=== PATIENT | female | born 1960 | race Caucasian/White ===

== ENCOUNTER 2016-09-18 17:29 | Emergency (ER) | payer OTHER ==
[2016-09-18] MEDS ORDERED: Sodium Chloride 0.9% 10 ML Syringe FLUSH PRN (17:32)
[2016-09-18] MEDS ORDERED: Sodium Chloride 0.9% 1,000 ML IV ONE ×2 (17:32→18:37)
[2016-09-18] MEDS ORDERED: Sodium Chloride 0.9% 2.5 ML Syringe FLUSH PRN (17:32)
[2016-09-18] MEDS ORDERED: Ketorolac 30 MG/ML SDV IVPUSH ONE (17:37)
[2016-09-18] MEDS ORDERED: Ondansetron 4 MG/2 ML SDV IVPUSH ONE (17:37)
--- NOTE | 2016-09-18 17:47 | EDM.PDOC ---
ED HPI GENERAL MEDICAL PROBLEM - General Chief Complaint: Abdominal Pain Stated Complaint: PT HAS STOMACH PAINS Time Seen by Provider: 09/18/16 17:30 - History of Present Illness INITIAL COMMENTS - FREE TEXT/NARRATIVE: HISTORY AND PHYSICAL: History of present illness: Patient 36-year-old female presents with conservative abdominal pain 3 weeks this is across her upper abdomen she's been seen by private doctor for physiatry see the diagnosis she has had prior laparoscopy denies known gallbladder pancreatic or renal disease there's been no fever chills chest pain shortness of breath or other concern she does have a history of diabetes as well as hypertension Review of systems: As per history of present illness and below otherwise all systems reviewed and negative. Past medical history: As per history of present illness and as reviewed below otherwise noncontributory. Surgical history: As per history of present illness and as reviewed below otherwise noncontributory. Social history: No reported history of drug or alcohol abuse. Family history: As per history of present illness and as reviewed below otherwise noncontributory. Physical exam: HEENT: Atraumatic, normocephalic, pupils reactive, negative for conjunctival pallor or scleral icterus, mucous membranes moist, throat clear, neck supple, nontender, trachea midline. Lungs: Clear to auscultation, breath sounds equal bilaterally, chest nontender. Heart: S1S2, regular, negative for clicks, rubs, or JVD. Abdomen: Soft, nondistended, mild tenderness across her upper abdomen this is nonlocalized no rebound no guarding. Negative for masses or hepatosplenomegaly. Negative for costovertebral tenderness. Pelvis: Stable nontender. Genitourinary: Deferred. Rectal: Deferred. Extremities: Atraumatic, negative for cords or calf pain. Neurovascular unremarkable. Neuro: Awake, alert, oriented. Cranial nerves II through XII unremarkable. Cerebellum unremarkable. Motor and sensory unremarkable throughout. Exam nonfocal. Diagnostics: CBC CMP amylase lipase UA chest x-ray EKG CT abdomen and pelvis Therapeutics: Normal saline 1 L bolus Toradol 30 mg IV Zofran 4 mg IV Impression: Over 1 abdominal pain #2 history diabetes #3 history of hypertension Definitive disposition and diagnosis as appropriate pending reevaluation and review of above. Upper Abdomen Pain Score (Numeric/FACES): 9 - Related Data Allergies Allergy/AdvReac Type Severity Reaction Status Date / Time amoxicillin Allergy Hives Verified 09/18/16 17:41 aspirin Allergy Hives Verified 09/18/16 17:41 Fish Containing Products Allergy Nausea and Verified 09/18/16 17:41 Vomiting ibuprofen Allergy Hives Verified 09/18/16 17:41 Home Meds: Home Meds Gabapentin [Neurontin] 900 mg PO BEDTIME 11/24/14 [History] Insulin Glargine,Hum.Rec.Anlog [Lantus Solostar] 40 units SQ BID 11/24/14 [ History] Canagliflozin [Invokana] 300 mg PO DAILY 07/21/15 [History] Lisinopril 20 mg PO DAILY 07/21/15 [History] Desvenlafaxine [Desvenlafaxine ER] 50 mg PO DAILY 09/18/16 [History] Pravastatin [Pravachol] 20 mg PO DAILY 09/18/16 [History] Past Medical History HEENT History: Reports: None Other HEENT History: wears glasses, has some diabetic retinopathy Cardiovascular History: Reports: None Respiratory History: Reports: Sleep Apnea Other Respiratory History: does not use CPAP Gastrointestinal History: Reports: GERD, Hiatal Hernia Genitourinary History: Reports: UTI, Recurrent Other Genitourinary History: yeast infections [employer] History: Reports: None Other OB/BYN History: breast reduction Musculoskeletal History: Reports: Arthritis, Fracture Other Musculoskeletal History: hx of fx right arm and left shoulder Neurological History: Reports: None Psychiatric History: Reports: Anxiety, PTSD Other Psychiatric History: refuses pre-op sedation for PTSD Endocrine/Metabolic History: Reports: Diabetes, Type II, Obesity/BMI 30+ Hematologic History: Reports: None Immunologic History: Reports: None Oncologic (Cancer) History: Reports: None Dermatologic History: Reports: Other (See Below) Other Dermatologic History: frequent scratching causing open sores - Past Surgical History Female Surgical History: Reports: Breast Reduction, Other (See Below) Musculoskeletal Surgical History: Reports: Shoulder Replacement Social & Family History - Tobacco Use Smoking Status *Q: Never Smoker Second Hand Smoke Exposure: No - Recreational Drug Use Recreational Drug Use: No Drug Use in Last 12 Months: No ED ROS GENERAL - Review of Systems Review Of Systems: ROS reveals no pertinent complaints other than HPI. ED EXAM, GENERAL - Physical Exam Exam: See Below (See dictation) Course - Vital Signs Last Recorded V/S: Last Vital Signs Temp 36.2 C 09/18/16 19:35 Pulse 81 09/18/16 19:35 Resp 17 09/18/16 19:35 BP 130/64 09/18/16 19:35 Pulse Ox 96 09/18/16 19:35 - Orders/Labs/Meds Orders: Active Orders 24 hr Category Date Time Status EKG Documentation Completion [RC] STAT Care 09/18/16 17:31 Active Pulse Oximetry [RC] ASDIRECTED Care 09/18/16 17:31 Active Abdomen Pelvis wo Cont [CT] Stat Exams 09/18/16 17:32 Taken Chest 1V Frontal [CR] Stat Exams 09/18/16 17:31 Taken Sodium Chloride 0.9% [Saline Flush] Med 09/18/16 17:32 Active 10 ml FLUSH ASDIRECTED PRN Sodium Chloride 0.9% [Saline Flush] Med 09/18/16 17:32 Active 2.5 ml FLUSH ASDIRECTED PRN Saline Lock Insert [OM.PC] Stat Oth 09/18/16 17:31 Ordered Medication Orders Sodium Chloride (Saline Flush) 10 ml FLUSH ASDIRECTED PRN PRN Reason: Keep Vein Open Sodium Chloride (Saline Flush) 2.5 ml FLUSH ASDIRECTED PRN PRN Reason: Keep Vein Open Labs: Laboratory Tests 09/18/16 09/18/16 09/18/16 Range/Units 17:50 17:56 17:56 WBC 11.91 H (4.0-11.0) K/uL RBC 4.67 (4.30-5.90) M/uL Hgb 14.1 (12.0-16.0) g/dL Hct 42.5 (36.0-46.0) % MCV 91.0 (80.0-98.0) fL MCH 30.2 (27.0-32.0) pg MCHC 33.2 (31.0-37.0) g/dL RDW Std Deviation 42.5 (28.0-62.0) fl RDW Coeff of Conor 13 (11.0-15.0) % Plt Count 261 (150-400) K/uL MPV 9.50 (7.40-12.00) fL Neut % (Auto) 71.1 (48.0-80.0) % Lymph % (Auto) 19.9 (16.0-40.0) % [place] % (Auto) 6.3 (0.0-15.0) % Eos % (Auto) 2.4 (0.0-7.0) % Baso % (Auto) 0.3 (0.0-1.5) % Neut # (Auto) 8.5 H (1.4-5.7) K/uL Lymph # (Auto) 2.4 (0.6-2.4) K/uL [place] # (Auto) 0.8 (0.0-0.8) K/uL Eos # (Auto) 0.3 (0.0-0.7) K/uL Baso # (Auto) 0.0 (0.0-0.1) K/uL Nucleated RBC % 0.0 /100WBC Nucleated RBCs # 0 K/uL ABG pH (7.35-7.45) ABG pCO2 (35-45) mmHG ABG pO2 (75-100) mmHG ABG HCO3 (22-26) mEq/L ABG Total CO2 ABG Base Excess (-2.0-2.0) Sodium 133 L (136-146) mmol/L Potassium 4.7 (3.5-5.1) mmol/L Chloride 103 (98-110) mmol/L Carbon Dioxide 18 L (21-31) mmol/L BUN 22 (6.0-23.0) mg/dL Creatinine 1.0 (0.6-1.5) mg/dL Est Cr Clr Drug Dosing 50.27 mL/min Estimated GFR (MDRD) 57.6 ml/min Glucose 515 H* (60-110) mg/dL POC Glucose (60-110) mg/dL Calcium 9.3 (8.8-10.8) mg/dL Total Bilirubin 0.3 (0.1-1.5) mg/dL AST 48 H (5-40) IU/L ALT 24 (8-54) IU/L Alkaline Phosphatase 52 (40-150) Total Protein 7.5 (6.0-8.0) g/dL Albumin 3.7 (3.5-5.0) g/dL Globulin 3.8 H (2.0-3.5) g/dL Albumin/Globulin Ratio 1.0 L (1.3-2.8) Amylase 33 (10-90) U/L Lipase 36 (7-80) U/L Urine Color YELLOW Urine Appearance CLEAR Urine pH 5.0 (5.0-8.0) Ur Specific [place] <= 1.005 (1.001-1.035) Urine Protein NEGATIVE (NEGATIVE) mg/dL Urine Glucose (UA) >=1000 (NEGATIVE) mg/dL Urine Ketones NEGATIVE (NEGATIVE) mg/dL Urine Occult Blood NEGATIVE (NEGATIVE) Urine Nitrite NEGATIVE (NEGATIVE) Urine Bilirubin NEGATIVE (NEGATIVE) Urine Urobilinogen 0.2 (<2.0) EU/dL Ur Leukocyte Esterase NEGATIVE (NEGATIVE) Urine RBC 0-2 (0-2/HPF) Urine WBC 0-1 (0-5/HPF) Ur Epithelial Cells OCCASIONAL (NONE-FEW) Urine Bacteria RARE (NEGATIVE) 09/18/16 09/18/16 09/18/16 Range/Units 19:11 19:20 20:04 WBC (4.0-11.0) K/uL RBC (4.30-5.90) M/uL Hgb (12.0-16.0) g/dL Hct (36.0-46.0) % MCV (80.0-98.0) fL MCH (27.0-32.0) pg MCHC (31.0-37.0) g/dL RDW Std Deviation (28.0-62.0) fl RDW Coeff of Conor (11.0-15.0) % Plt Count (150-400) K/uL MPV (7.40-12.00) fL Neut % (Auto) (48.0-80.0) % Lymph % (Auto) (16.0-40.0) % [place] % (Auto) (0.0-15.0) % Eos % (Auto) (0.0-7.0) % Baso % (Auto) (0.0-1.5) % Neut # (Auto) (1.4-5.7) K/uL Lymph # (Auto) (0.6-2.4) K/uL [place] # (Auto) (0.0-0.8) K/uL Eos # (Auto) (0.0-0.7) K/uL Baso # (Auto) (0.0-0.1) K/uL Nucleated RBC % /100WBC Nucleated RBCs # K/uL ABG pH 7.371 (7.35-7.45) ABG pCO2 38 (35-45) mmHG ABG pO2 76 (75-100) mmHG ABG HCO3 22 (22-26) mEq/L ABG Total CO2 20.1 ABG Base Excess -2.8 L (-2.0-2.0) Sodium (136-146) mmol/L Potassium (3.5-5.1) mmol/L Chloride (98-110) mmol/L Carbon Dioxide (21-31) mmol/L BUN (6.0-23.0) mg/dL Creatinine (0.6-1.5) mg/dL Est Cr Clr Drug Dosing mL/min Estimated GFR (MDRD) ml/min Glucose (60-110) mg/dL POC Glucose 442 H 361 H (60-110) mg/dL Calcium (8.8-10.8) mg/dL Total Bilirubin (0.1-1.5) mg/dL AST (5-40) IU/L ALT (8-54) IU/L Alkaline Phosphatase (40-150) Total Protein (6.0-8.0) g/dL Albumin (3.5-5.0) g/dL Globulin (2.0-3.5) g/dL Albumin/Globulin Ratio (1.3-2.8) Amylase (10-90) U/L Lipase (7-80) U/L Urine Color Urine Appearance Urine pH (5.0-8.0) Ur Specific [place] (1.001-1.035) Urine Protein (NEGATIVE) mg/dL Urine Glucose (UA) (NEGATIVE) mg/dL Urine Ketones (NEGATIVE) mg/dL Urine Occult Blood (NEGATIVE) Urine Nitrite (NEGATIVE) Urine Bilirubin (NEGATIVE) Urine Urobilinogen (<2.0) EU/dL Ur Leukocyte Esterase (NEGATIVE) Urine RBC (0-2/HPF) Urine WBC (0-5/HPF) Ur Epithelial Cells (NONE-FEW) Urine Bacteria (NEGATIVE) Meds: Medications Generic Name Dose Route Start Last Admin Trade Name Freq PRN Reason Stop Dose Admin Sodium Chloride 10 ml 09/18/16 17:32 Saline Flush FLUSH ASDIRECTED PRN Keep Vein Open Sodium Chloride 2.5 ml 09/18/16 17:32 Saline Flush FLUSH ASDIRECTED PRN Keep Vein Open Discontinued Medications Generic Name Dose Route Start Last Admin Trade Name Carolin PRN Reason Stop Dose Admin Sodium Chloride 1,000 mls @ 999 mls/hr 09/18/16 17:32 09/18/16 18:17 Normal Saline IV 09/18/16 18:32 Not Given STAT ONE Sodium Chloride 1,000 mls @ 999 mls/hr 09/18/16 18:37 09/18/16 18:39 Normal Saline IV 09/18/16 19:37 999 mls/hr .Bolus ONE Administration Insulin Human Regular 10 unit 09/18/16 19:32 09/18/16 19:41 Novolin R SUBCUT 09/18/16 19:33 10 units ONETIME ONE Administration Protocol Insulin Human Regular 10 unit 09/18/16 19:34 09/18/16 19:38 Novolin R IVPUSH 09/18/16 19:35 10 units ONETIME ONE Administration Protocol Ketorolac Tromethamine 30 mg 09/18/16 17:37 09/18/16 18:17 Toradol IVPUSH 09/18/16 17:38 Not Given ONETIME ONE Ketorolac Tromethamine 60 mg 09/18/16 18:07 09/18/16 18:18 Toradol IM 09/18/16 18:08 60 mg ONETIME ONE Administration Ondansetron HCl 4 mg 09/18/16 17:37 09/18/16 18:18 Zofran IVPUSH 09/18/16 17:38 Not Given ONETIME ONE Ondansetron HCl 4 mg 09/18/16 18:06 09/18/16 18:18 Zofran Odt PO 09/18/16 18:07 4 mg ONETIME ONE Administration Departure - Departure Time of Disposition: 20:19 Disposition: Home, Self-Care 01 Condition: Good Clinical Impression: Abdominal pain, Cholelithiasis, Hyperglycemia, Diabetes - Discharge Information Forms: ED Department Discharge Additional Instructions: The following information is given to patients seen in the emergency department who are being discharged to home. This information is to outline your options for follow-up care. We provide all patients seen in our emergency department with a follow-up referral. The need for follow-up, as well as the timing and circumstances, are variable depending upon the specifics of your emergency department visit. If you don't have a primary care physician on staff, we will provide you with a referral. We always advise you to contact your personal physician following an emergency department visit to inform them of the circumstance of the visit and for follow-up with them and/or the need for any referrals to a consulting specialist. The emergency department will also refer you to a specialist when appropriate. This referral assures that you have the opportunity for followup care with a specialist. All of these measure are taken in an effort to provide you with optimal care, which includes your followup. Under all circumstances we always encourage you to contact your private physician who remains a resource for coordinating your care. When calling for followup care, please make the office aware that this follow-up is from your recent emergency room visit. If for any reason you are refused follow-up, please contact the [facility] emergency department at and asked to speak to the emergency department charge nurse. [facility] Professional Building [address] [place] [address], [facility] [address] [place] [address] Diet as directed continue current medications follow-up primary medical doctor/ general surgery call to schedule routine appointments return as needed as discussed - My Orders Last 24 Hours: My Active Orders 09/18/16 17:31 EKG Documentation Completion [RC] STAT Pulse Oximetry [RC] ASDIRECTED Chest 1V Frontal [CR] Stat Saline Lock Insert [OM.PC] Stat 09/18/16 17:32 Abdomen Pelvis wo Cont [CT] Stat Sodium Chloride 0.9% [Saline Flush] 10 ml FLUSH ASDIRECTED PRN Sodium Chloride 0.9% [Saline Flush] 2.5 ml FLUSH ASDIRECTED PRN - Assessment/Plan Last 24 Hours: My Active Orders 09/18/16 17:31 EKG Documentation Completion [RC] STAT Pulse Oximetry [RC] ASDIRECTED Chest 1V Frontal [CR] Stat Saline Lock Insert [OM.PC] Stat 09/18/16 17:32 Abdomen Pelvis wo Cont [CT] Stat Sodium Chloride 0.9% [Saline Flush] 10 ml FLUSH ASDIRECTED PRN Sodium Chloride 0.9% [Saline Flush] 2.5 ml FLUSH ASDIRECTED PRN
[2016-09-18] MEDS ORDERED: Ondansetron 4 MG Tab.DIS PO ONE (18:06)
[2016-09-18] MEDS ORDERED: Ketorolac 60 MG/2 ML SDV IM ONE (18:07)
[2016-09-18] MEDS ORDERED: Insulin Regular, Human 100 Units/ML 10 ML Vial SUBCUT ONE (19:32)
[2016-09-18] MEDS ORDERED: Insulin Regular, Human 100 Units/ML 10 ML Vial IVPUSH ONE (19:34)
[2016-09-18 20:01] VITALS: BP 130/64
--- NOTE | 2016-09-20 15:01 | CR ---
EXAM DATE: 09/18/16 PATIENT'S AGE: 56 Patient: ILAN HERNANDEZ Facility: [place], [place] Site . Site : 1960 Study: XRay Chest [id number]/1/2017 6:15:35 PM Ordering Physician: Doctor Anderson Final Report: INDICATION: upper abd pain x 2 wks TECHNIQUE: Chest 1 view COMPARISON: 11/08/2012 FINDINGS: Cardiovascular and mediastinum: Heart size and vasculature are normal in caliber and appearance. Mediastinum is within normal limits. Lungs and pleural space: No focal consolidation. No sign of pleural effusion. No pneumothorax. Bones: Left shoulder arthroplasty. IMPRESSION: No acute cardiopulmonary disease. Dictated by Vasiliy Castelan MD @ 09/18/2016 6:52:00 PM Dictated by: Vasiliy Castelan MD @ 09/18/2016 18:52:39 (Electronic Signature) Report Signed by Proxy. JONATHAN
--- NOTE | 2016-09-20 15:02 | CT ---
EXAM DATE: 09/18/16 PATIENT'S AGE: 56 Patient: ILAN HERNANDEZ Facility: [place], [place] Site . Site : 1960 Study: CT Abdomen/Pelvis [id number]/1/2017 6:17:01 PM Ordering Physician: Doctor Anderson Final Report: INDICATION: upper abd pain x 2wks. nausea, constipation TECHNIQUE: CT abdomen and pelvis without contrast. COMPARISON: None FINDINGS: Lower chest: Calcified granuloma along the lateral left lower lobe. Calcified left infrahilar lymph nodes. Liver: Unremarkable. Spleen: Unremarkable. Pancreas: Unremarkable. Gallbladder and bile ducts: Cholelithiasis. Kidneys: Unremarkable. No kidney or ureteral stones and no hydronephrosis. Adrenal glands: Unremarkable. GI tract: Small hiatal hernia. Appendix is normal. Vascular structures: Atherosclerotic disease. Lymph nodes: Unremarkable. Miscellaneous: Fat containing umbilical hernia. No free air or significant free fluid. Pelvic Organs: Probable nabothian cysts. Bones: Degenerative changes. IMPRESSION: 1. Cholelithiasis. 2. Fat containing umbilical hernia. 3. Small hiatal hernia. Dictated by Vasiliy Castelan MD @ 09/18/2016 6:57:05 PM Dictated by: Vasiliy Castelan MD @ 09/18/2016 18:57:13 (Electronic Signature) Report Signed by Proxy. [facility]
== END 2016-09-18 20:45 | disposition home or self-care (01) ==
LOC: MW.ED 17:29
DX: K80.20 Calculus of gallbladder without cholecystitis without obstruction (principal); E11.65 Type 2 diabetes mellitus with hyperglycemia; I10 Essential (primary) hypertension; K21.9 Gastro-esophageal reflux disease without esophagitis; E66.9 Obesity, unspecified; Z88.1 Allergy status to other antibiotic agents; Z88.6 Allergy status to analgesic agent; Z91.013 Allergy to seafood; Z79.4 Long term (current) use of insulin; Z79.899 Other long term (current) drug therapy; Z87.440 Personal history of urinary (tract) infections
CPT/HCPCS: 36415; 36600; 71010; 74176; 80053; 81001; 82150; 82803; 82962; 83690; 85025; 96360; 96372; 99285; A4566; A9270; J1885; J7040; 93005; 99283; J1815-GY

== ENCOUNTER 2016-09-29 19:52 | Observation (INO) | payer OTHER ==
[2016-09-29] MEDS ORDERED: Sodium Chloride 0.9% 1,000 ML IV ONE (20:06)
--- NOTE | 2016-09-29 20:44 | EDM.PDOC ---
ED HPI GENERAL MEDICAL PROBLEM - General Chief Complaint: General Stated Complaint: GALLBLADDER ISSUES Time Seen by Provider: 09/29/16 20:00 Source of Information: Reports: Patient History Limitations: Reports: No Limitations - History of Present Illness INITIAL COMMENTS - FREE TEXT/NARRATIVE: History of present illness: [56-year-old home female comes in complaining of water retention and global feelings of feeling tight and full. Patient indicates she has a new diagnosis of gallbladder disease and her blood sugar had been out of control but she had been greatly improved over the last week or 2 in hopes of eventually having her gallbladder removed.] Review of systems: As per history of present illness and below otherwise all systems reviewed and negative. Past medical history: As per history of present illness and as reviewed below otherwise noncontributory. Surgical history: As per history of present illness and as reviewed below otherwise noncontributory. Social history: No reported history of drug or alcohol abuse. Family history: As per history of present illness and as reviewed below otherwise noncontributory. Physical exam: HEENT: Atraumatic, normocephalic, pupils reactive, negative for conjunctival pallor or scleral icterus, mucous membranes moist, throat clear, neck supple, nontender, trachea midline. Lungs: Clear to auscultation, breath sounds equal bilaterally, chest nontender. Heart: S1S2, regular, negative for clicks, rubs, or JVD. Abdomen: Soft, protuberant nontender Negative for masses or hepatosplenomegaly. Negative for costovertebral tenderness. Pelvis: Stable nontender. Genitourinary: Deferred. Rectal: Deferred. Extremities: Atraumatic, negative for cords or calf pain. Neurovascular unremarkable. 2-3+ pitting edema to bilateral lower extremities Neuro: Awake, alert, oriented. Cranial nerves II through XII unremarkable. Cerebellum unremarkable. Motor and sensory unremarkable throughout. Exam nonfocal. Patient positive for exertional dyspnea and global shortness of breath Diagnostics: [CBC, CMP, BNP] Therapeutics: [IV fluid, T] Impression: [CHF] Plan: [Admit, telemetry] Definitive disposition and diagnosis as appropriate pending reevaluation and review of above. - Related Data Allergies Allergy/AdvReac Type Severity Reaction Status Date / Time amoxicillin Allergy Hives Verified 09/29/16 19:55 aspirin Allergy Hives Verified 09/29/16 19:55 Fish Containing Products Allergy Nausea and Verified 07/12/17 19:55 Vomiting ibuprofen Allergy Hives Verified 09/29/16 19:55 Home Meds: Home Meds Gabapentin [Neurontin] 900 mg PO BEDTIME 11/24/14 [History] Insulin Glargine,Hum.Rec.Anlog [Lantus Solostar] 40 units SQ BID 11/24/14 [ History] Canagliflozin [Invokana] 300 mg PO DAILY 07/21/15 [History] Lisinopril 20 mg PO DAILY 07/21/15 [History] Desvenlafaxine [Desvenlafaxine ER] 50 mg PO DAILY 09/18/16 [History] Pravastatin [Pravachol] 20 mg PO DAILY 09/18/16 [History] Past Medical History HEENT History: Reports: None Other HEENT History: wears glasses, has some diabetic retinopathy Cardiovascular History: Reports: None Respiratory History: Reports: Sleep Apnea Other Respiratory History: does not use CPAP Gastrointestinal History: Reports: GERD, Hiatal Hernia Genitourinary History: Reports: UTI, Recurrent Other Genitourinary History: yeast infections 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 Other OB/BYN History: breast reduction Musculoskeletal History: Reports: Arthritis, Fracture Other Musculoskeletal History: hx of fx right arm and left shoulder Neurological History: Reports: None Psychiatric History: Reports: Anxiety, PTSD Other Psychiatric History: refuses pre-op sedation for PTSD Endocrine/Metabolic History: Reports: Diabetes, Type II, Obesity/BMI 30+ Hematologic History: Reports: None Immunologic History: Reports: None Oncologic (Cancer) History: Reports: None Dermatologic History: Reports: Other (See Below) Other Dermatologic History: frequent scratching causing open sores - Infectious Disease History Infectious Disease History: Reports: Chicken Pox - Past Surgical History Head Surgeries/Procedures: Reports: None Female Surgical History: Reports: Breast Reduction, Other (See Below) Musculoskeletal Surgical History: Reports: Shoulder Replacement Social & Family History - Family History Family Medical History: Noncontributory - Tobacco Use Smoking Status *Q: Never Smoker Second Hand Smoke Exposure: No - Caffeine Use Caffeine Use: Reports: Energy Drinks Caffeine Use Comment: "1 every couple of day" - Recreational Drug Use Recreational Drug Use: No Drug Use in Last 12 Months: No ED ROS GENERAL - Review of Systems Review Of Systems: See Below (History of present illness) ED EXAM, GENERAL - Physical Exam Exam: See Below (See history of present illness) Course - Vital Signs Last Recorded V/S: Last Vital Signs Temp 36.4 C 09/29/16 19:55 Pulse 86 09/29/16 21:20 Resp 18 09/29/16 21:20 BP 117/68 09/29/16 21:20 Pulse Ox 96 09/29/16 21:20 - Orders/Labs/Meds Orders: Active Orders 24 hr Category Date Time Status Chest 2V [CR] Stat Exams 09/29/16 21:25 Ordered Sodium Chloride 0.9% [Normal Saline] 1,000 ml Med 09/29/16 20:06 Active IV STAT Medication Orders Sodium Chloride (Normal Saline) 1,000 mls @ 75 mls/hr IV STAT ONE Stop: 09/30/16 09:25 Last Admin: 09/29/16 20:19 Dose: 75 mls/hr Labs: Laboratory Tests 09/29/16 09/29/16 09/29/16 Range/Units 20:14 20:14 20:14 WBC 11.16 H (4.0-11.0) K/uL RBC 3.80 L (4.30-5.90) M/uL Hgb 11.3 L (12.0-16.0) g/dL Hct 35.4 L (36.0-46.0) % MCV 93.2 (80.0-98.0) fL MCH 29.7 (27.0-32.0) pg MCHC 31.9 (31.0-37.0) g/dL RDW Std Deviation 45.1 (28.0-62.0) fl RDW Coeff of Conor 13 (11.0-15.0) % Plt Count 288 (150-400) K/uL MPV 9.00 (7.40-12.00) fL Neut % (Auto) 57.6 (48.0-80.0) % Lymph % (Auto) 32.0 (16.0-40.0) % [place] % (Auto) 7.5 (0.0-15.0) % Eos % (Auto) 2.7 (0.0-7.0) % Baso % (Auto) 0.2 (0.0-1.5) % Neut # (Auto) 6.4 H (1.4-5.7) K/uL Lymph # (Auto) 3.6 H (0.6-2.4) K/uL [place] # (Auto) 0.8 (0.0-0.8) K/uL Eos # (Auto) 0.3 (0.0-0.7) K/uL Baso # (Auto) 0.0 (0.0-0.1) K/uL Nucleated RBC % 0.0 /100WBC Nucleated RBCs # 0 K/uL Sodium 136 (136-146) mmol/L Potassium 4.5 (3.5-5.1) mmol/L Chloride 104 (98-110) mmol/L Carbon Dioxide 24 (21-31) mmol/L BUN 30 H (6.0-23.0) mg/dL Creatinine 1.0 (0.6-1.5) mg/dL Est Cr Clr Drug Dosing 50.27 mL/min Estimated GFR (MDRD) 57.6 ml/min Glucose 170 H (60-110) mg/dL Calcium 8.8 (8.8-10.8) mg/dL Total Bilirubin 0.3 (0.1-1.5) mg/dL AST 67 H (5-40) IU/L ALT 79 H (8-54) IU/L Alkaline Phosphatase 154 H (40-150) B-Natriuretic Peptide 548 H (<100) PG/ML Total Protein 7.3 (6.0-8.0) g/dL Albumin 3.5 (3.5-5.0) g/dL Globulin 3.8 H (2.0-3.5) g/dL Albumin/Globulin Ratio 0.9 L (1.3-2.8) Urine Color Urine Appearance Urine pH (5.0-8.0) Ur Specific [place] (1.001-1.035) Urine Protein (NEGATIVE) mg/dL Urine Glucose (UA) (NEGATIVE) mg/dL Urine Ketones (NEGATIVE) mg/dL Urine Occult Blood (NEGATIVE) Urine Nitrite (NEGATIVE) Urine Bilirubin (NEGATIVE) Urine Urobilinogen (<2.0) EU/dL Ur Leukocyte Esterase (NEGATIVE) Urine RBC (0-2/HPF) Urine WBC (0-5/HPF) Ur Epithelial Cells (NONE-FEW) Urine Bacteria (NEGATIVE) 09/29/16 Range/Units 20:45 WBC (4.0-11.0) K/uL RBC (4.30-5.90) M/uL Hgb (12.0-16.0) g/dL Hct (36.0-46.0) % MCV (80.0-98.0) fL MCH (27.0-32.0) pg MCHC (31.0-37.0) g/dL RDW Std Deviation (28.0-62.0) fl RDW Coeff of Conor (11.0-15.0) % Plt Count (150-400) K/uL MPV (7.40-12.00) fL Neut % (Auto) (48.0-80.0) % Lymph % (Auto) (16.0-40.0) % [place] % (Auto) (0.0-15.0) % Eos % (Auto) (0.0-7.0) % Baso % (Auto) (0.0-1.5) % Neut # (Auto) (1.4-5.7) K/uL Lymph # (Auto) (0.6-2.4) K/uL [place] # (Auto) (0.0-0.8) K/uL Eos # (Auto) (0.0-0.7) K/uL Baso # (Auto) (0.0-0.1) K/uL Nucleated RBC % /100WBC Nucleated RBCs # K/uL Sodium (136-146) mmol/L Potassium (3.5-5.1) mmol/L Chloride (98-110) mmol/L Carbon Dioxide (21-31) mmol/L BUN (6.0-23.0) mg/dL Creatinine (0.6-1.5) mg/dL Est Cr Clr Drug Dosing mL/min Estimated GFR (MDRD) ml/min Glucose (60-110) mg/dL Calcium (8.8-10.8) mg/dL Total Bilirubin (0.1-1.5) mg/dL AST (5-40) IU/L ALT (8-54) IU/L Alkaline Phosphatase (40-150) B-Natriuretic Peptide (<100) PG/ML Total Protein (6.0-8.0) g/dL Albumin (3.5-5.0) g/dL Globulin (2.0-3.5) g/dL Albumin/Globulin Ratio (1.3-2.8) Urine Color YELLOW Urine Appearance CLEAR Urine pH 5.5 (5.0-8.0) Ur Specific [place] 1.025 (1.001-1.035) Urine Protein NEGATIVE (NEGATIVE) mg/dL Urine Glucose (UA) >=1000 (NEGATIVE) mg/dL Urine Ketones NEGATIVE (NEGATIVE) mg/dL Urine Occult Blood NEGATIVE (NEGATIVE) Urine Nitrite NEGATIVE (NEGATIVE) Urine Bilirubin NEGATIVE (NEGATIVE) Urine Urobilinogen 0.2 (<2.0) EU/dL Ur Leukocyte Esterase NEGATIVE (NEGATIVE) Urine RBC NONE SEEN (0-2/HPF) Urine WBC 0-1 (0-5/HPF) Ur Epithelial Cells FEW (NONE-FEW) Urine Bacteria FEW (NEGATIVE) Meds: Medications Generic Name Dose Route Start Last Admin Trade Name Freq PRN Reason Stop Dose Admin Sodium Chloride 1,000 mls @ 75 mls/hr 09/29/16 20:06 09/29/16 20:19 Normal Saline IV 09/30/16 09:25 75 mls/hr STAT ONE Administration Departure - Departure Time of Disposition: 21:41 Disposition: Admitted As Inpatient 67 Condition: Good Clinical Impression: CHF, Congestive heart failure - Discharge Information Forms: ED Department Discharge - My Orders Last 24 Hours: My Active Orders 09/29/16 20:06 Sodium Chloride 0.9% [Normal Saline] 1,000 ml IV STAT 09/29/16 21:25 Chest 2V [CR] Stat - Assessment/Plan Last 24 Hours: My Active Orders 09/29/16 20:06 Sodium Chloride 0.9% [Normal Saline] 1,000 ml IV STAT 09/29/16 21:25 Chest 2V [CR] Stat
[2016-09-29] MEDS ORDERED: Temazepam 15 MG Cap PO PRN (22:43)
[2016-09-29] MEDS ORDERED: Morphine 10 MG/ML Syringe IVPUSH PRN (22:43)
--- NOTE | 2016-09-29 22:48 | PCM.HP ---
H&P History of Present Illness - General Date of Service: 09/29/16 Admit Problem/Dx: Admission Diagnosis/Problem Admission Diagnosis/Problem Edema Source of Information: Patient, Family, Old Records, Provider - History of Present Illness Initial Comments - Free Text/Narative: she presented to the ED this pm with complaints of feeling full in her abdomen. She had a brief period of shortness of breath this am that resolved spontaneously. She had no orthopnea or dyspnea now. She also has been on her feet more than usual and notes that she has a little more fluid retention in her feet and legs. This has happened at other times in the past as well. No chest pain no known history of cardiac disease She was seen about ten days ago for abdominal complaints. At that time CT showed cholelithiasis. She has been very careful about her diet since then. no pain Pain Score (Numeric/FACES): 0 - Related Data Allergies/Adverse Reactions: Allergies Allergy/AdvReac Type Severity Reaction Status Date / Time amoxicillin Allergy Hives Verified 09/29/16 19:55 aspirin Allergy Hives Verified 09/29/16 19:55 Fish Containing Products Allergy Nausea and Verified 09/29/16 19:55 Vomiting ibuprofen Allergy Hives Verified 09/29/16 19:55 Home Medications: Home Meds Gabapentin [Neurontin] 900 mg PO BEDTIME 11/24/14 [History] Insulin Glargine,Hum.Rec.Anlog [Lantus Solostar] 40 units SQ BID 11/24/14 [ History] Canagliflozin [Invokana] 300 mg PO DAILY 07/21/15 [History] Lisinopril 20 mg PO DAILY 07/21/15 [History] Desvenlafaxine [Desvenlafaxine ER] 50 mg PO DAILY 09/18/16 [History] Pravastatin [Pravachol] 20 mg PO DAILY 09/18/16 [History] Past Medical History HEENT History: Reports: None Other HEENT History: wears glasses, has some diabetic retinopathy Cardiovascular History: Reports: Hypertension. Denies: Afib, Angina, Bypass, CAD, Cardiomyopathy, Heart Failure Respiratory History: Reports: Sleep Apnea. Denies: COPD Other Respiratory History: does not use CPAP Gastrointestinal History: Reports: GERD, Hiatal Hernia. 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 Other OB/BYN History: breast reduction Musculoskeletal History: Reports: Arthritis, Fracture Other Musculoskeletal History: hx of fx right arm and left shoulder Neurological History: Reports: None Psychiatric History: Reports: Anxiety, PTSD Other Psychiatric History: refuses pre-op sedation for PTSD Endocrine/Metabolic History: Reports: Diabetes, Type II, Obesity/BMI 30+ Hematologic History: Reports: None Immunologic History: Reports: None Oncologic (Cancer) History: Reports: None Dermatologic History: Reports: Other (See Below) Other Dermatologic History: frequent scratching causing open sores - Infectious Disease History Infectious Disease History: Reports: Chicken Pox - Past Surgical History Head Surgeries/Procedures: Reports: None Female Surgical History: Reports: Breast Reduction, Other (See Below) Musculoskeletal Surgical History: Reports: Shoulder Replacement Social & Family History - Family History Family Medical History: Noncontributory - Tobacco Use Smoking Status *Q: Never Smoker Second Hand Smoke Exposure: No - Caffeine Use Caffeine Use: Reports: Energy Drinks Caffeine Use Comment: "1 every couple of day" - Alcohol Use Alcohol Use in Last Twelve Months: No Alcohol Use Comment: she does not drink alcohol - Recreational Drug Use Recreational Drug Use: No Drug Use in Last 12 Months: No H&P Review of Systems - Review of Systems: Review Of Systems: See Below General: Denies: Fever, Chills HEENT: Denies: Dysphasia Pulmonary: Reports: Shortness of Breath (as per HPI). Denies: Wheezing, Cough, Sputum, Hemoptysis Cardiovascular: Denies: Chest Pain, Palpitations Gastrointestinal: Denies: Abdominal Pain, Anorexia, Black Stool, Bloody Stool, Decreased Appetite, Hematemesis, Hematochezia, Vomiting Genitourinary: Denies: Dysuria, Frequency, Burning, Hematuria Skin: Denies: Cyanosis Psychiatric: Denies: Confusion, Agitation Exam - Exam Exam: See Below - Vital Signs Vital Signs: Last Vital Signs Temp 97.1 F 09/29/16 22:15 Pulse 68 09/29/16 22:15 Resp 18 09/29/16 22:15 BP 118/69 09/29/16 22:15 Pulse Ox 96 09/29/16 22:15 Weight: 120 kg - Exam General: Alert, Oriented, Cooperative HEENT: EOMI, Mucosa Moist & [place] Neck: Supple, Trachea Midline Lungs: Clear to Auscultation, Normal Respiratory Effort Cardiovascular: Regular Rate, Regular Rhythm Abdomen: Soft, Ledesma's Sign, Other (mild diffuse upper abdominal tenderness). No: Distention, Guarding, Rigidity (Female) Exam: Deferred Rectal (Female) Exam: Deferred Extremities: Other (trace to one plus pedal edema bilaterally) Neurological: Cranial Nerves Intact, Normal Speech Neuro Extensive - Motor, Sensory, Reflexes: No: Facial palsy (L), Facial Palsy ( R), Hemeplagia (R), Hemeplagia (L) Psychiatric: Normal Affect - Patient Data Result Diagrams: 09/29/16 20:14 09/29/16 20:14 *Q Meaningful Use (ADM) - VTE *Q VTE Criteria *Q: - Stroke *Q Stroke Criteria *Q: - AMI *Q AMI Criteria *Q: - Problem List (1) Peripheral edema SNOMED Code(s): 038345250 ICD Code: R60.9 - EDEMA, UNSPECIFIED Status: Acute Current Visit: Yes (2) Elevated liver enzymes SNOMED Code(s): 243529478, 556768298 ICD Code: R74.8 - ABNORMAL LEVELS OF OTHER SERUM ENZYMES Status: Acute Current Visit: Yes (3) Cholelithiasis SNOMED Code(s): 777201605 ICD Code: K80.20 - CALCULUS OF GALLBLADDER W/O CHOLECYSTITIS W/O OBSTRUCTION Status: Acute Current Visit: No (4) Diabetes SNOMED Code(s): 37356669 ICD Code: E11.9 - TYPE 2 DIABETES MELLITUS WITHOUT COMPLICATIONS Status: Acute Current Visit: No Problem List Initiated/Reviewed/Updated: Yes Orders Last 24hrs: Active Orders 24 hr Category Date Time Status Patient Status [ADT] Routine ADT 09/29/16 22:44 Ordered Oxygen Therapy [RC] PRN Care 09/29/16 22:44 Ordered POC Glucose [Blood Glucose Check, Bedside] [RC] Care 09/29/16 22:42 Ordered QIDACANDBED Up ad Jadyn [RC] ASDIRECTED Care 09/29/16 22:43 Ordered VTE/DVT Education [RC] PER UNIT ROUTINE Care 09/29/16 22:44 Ordered Vital Signs [RC] Q4H Care 09/29/16 22:44 Ordered [place] [employer] Diet [DIET] Diet 09/29/16 Breakfast Ordered CBC WITH AUTO DIFF [HEME] AM Lab 09/30/16 05:11 Ordered COMPREHENSIVE METABOLIC PN,CMP [CHEM] AM Lab 09/30/16 05:11 Ordered MAGNESIUM [CHEM] AM Lab 09/30/16 05:11 Ordered Canagliflozin [Invokana] Med 09/30/16 09:00 Ordered 300 mg PO DAILY Desvenlafaxine [Desvenlafaxine ER] Med 09/30/16 09:00 Ordered 50 mg PO DAILY Gabapentin [Neurontin] Med 09/30/16 21:00 Ordered 900 mg PO BEDTIME Insulin Aspart [NovoLOG] Med 09/29/16 22:45 Ordered See Protocol SUBCUT ACBED Insulin Glarg,Human.Rec.Analog [LantUS Solostar] Med 09/30/16 09:00 Ordered 40 units SUBCUT BID Lisinopril [Prinivil] Med 09/30/16 09:00 Ordered 20 mg PO DAILY Morphine Med 09/29/16 22:43 Ordered 4 mg IVPUSH Q2H PRN Pravastatin Med 09/30/16 09:00 Ordered 20 mg PO DAILY Temazepam [Restoril] Med 09/29/16 22:43 Ordered 15 mg PO BEDTIME PRN Resuscitation Status Routine Resus Stat 09/29/16 22:43 Ordered Medication Orders Gabapentin (Neurontin) 900 mg PO BEDTIME BROWN Sodium Chloride (Normal Saline) 1,000 mls @ 75 mls/hr IV STAT ONE Stop: 09/30/16 09:25 Last Admin: 09/29/16 20:19 Dose: 75 mls/hr Insulin Aspart (Novolog) 0 unit SUBCUT ACBED BROWN PRN Reason: Protocol Insulin Glargine (Lantus Solostar) 40 units SUBCUT BID BROWN Lisinopril (Prinivil) 20 mg PO DAILY BROWN Non-Formulary Medication (Canagliflozin [Invokana]) 300 mg PO DAILY BROWN Non-Formulary Medication (Desvenlafaxine [Desvenlafaxine Er]) 50 mg PO DAILY BROWN Non-Formulary Medication (Pravastatin) 20 mg PO DAILY BROWN Assessment/Plan Comment:: She usually sees Dr Reyes echo gall bladder us repeat LFTs on recent CT area of fatty infiltrationof the liver noted. anticipate discharge tomorrow.
[2016-09-29] MEDS: Insulin Aspart 100 Units/ML 3 ML Pen SUBCUT SCH (23:50)
[2016-09-30 05:48] LABS: CHLORIDE,CL 106 mmol/L (98-110); SODIUM,NA 137 mmol/L (136-146)
[2016-09-30] MEDS: Insulin Aspart 100 Units/ML 3 ML Pen SUBCUT SCH (06:34)
[2016-09-30 08:43] VITALS: BP 129/77
[2016-09-30] MEDS ORDERED: Insulin Glargine,Human Rec. Analog 100 Units/ML 3 ML Pen SUBCUT SCH (09:00)
[2016-09-30] MEDS ORDERED: INVOKANA 300 MG PO SCH (09:00)
[2016-09-30] MEDS ORDERED: Lisinopril 10 MG Tab PO SCH ×2 (09:00→21:00)
[2016-09-30] MEDS ORDERED: DESVENLAFAXINE 50 MG PO SCH (09:00)
--- NOTE | 2016-09-30 09:53 | US ---
EXAMINATION: Right upper quadrant ultrasound HISTORY: Elevated liver enzymes COMPARISON: CT dated 09/18/2016 TECHNIQUE: Grayscale and color Doppler images obtained of the right upper quadrant. FINDINGS: The visualized pancreas appears unremarkable. The liver appears normal in contour and echo genicity without a focal hepatic mass. The gallbladder wall thickness measures up to 1 cm. No perich olecystic fluid is noted. Shadowing gallstones are noted. The sonographic Ledesma sign is reported po sitive. The common bile duct measures 4 mm. The right kidney measures at least 11 cm [id number] wi thout evidence of hydronephrosis. IMPRESSION: 1. Cholelithiasis and gallbladder wall thickening with a positive sonographic Ledesma sign. This is s uspicious for cholecystitis. 2. The liver echotexture appears grossly normal.
--- NOTE | 2016-09-30 10:30 | PCM.PN ---
[id number], urinating - Review of Systems General: Reports: No Symptoms HEENT: Reports: no symptoms Pulmonary: Reports: no symptoms Cardiovascular: Reports: No Symptoms Gastrointestinal: Reports: No symptoms Genitourinary: Reports: no symptoms Musculoskeletal: Reports: no symptoms Skin: Reports: no symptoms Neurological: Reports: No Symptoms Psychiatric: Reports: no symptoms - Patient Data Vitals - most recent: Last Vital Signs Temp 96.8 F 09/30/16 08:00 Pulse 82 09/30/16 08:00 Resp 20 09/30/16 08:00 BP 129/77 09/30/16 08:00 Pulse Ox 97 09/30/16 08:00 Weight - most recent: 120 kg I&O - last 24 hours: Intake & Output 09/29/16 09/30/16 09/30/16 22:59 06:59 14:59 Intake Total 419 Output Total 400 Balance 19 Lab Results last 24 hrs: Laboratory Results - last 24 hr 09/29/16 09/30/16 09/30/16 Range/Units 23:17 05:10 05:10 WBC 9.21 (4.0-11.0) K/uL RBC 3.68 L (4.30-5.90) M/uL Hgb 10.8 L (12.0-16.0) g/dL Hct 34.6 L (36.0-46.0) % MCV 94.0 (80.0-98.0) fL MCH 29.3 (27.0-32.0) pg MCHC 31.2 (31.0-37.0) g/dL RDW Std Deviation 46.0 (28.0-62.0) fl RDW Coeff of Conor 13 (11.0-15.0) % Plt Count 290 (150-400) K/uL MPV 9.00 (7.40-12.00) fL Neut % (Auto) 53.7 (48.0-80.0) % Lymph % (Auto) 34.2 (16.0-40.0) % [place] % (Auto) 8.5 (0.0-15.0) % Eos % (Auto) 3.4 (0.0-7.0) % Baso % (Auto) 0.2 (0.0-1.5) % Neut # (Auto) 5.0 (1.4-5.7) K/uL Lymph # (Auto) 3.2 H (0.6-2.4) K/uL [place] # (Auto) 0.8 (0.0-0.8) K/uL Eos # (Auto) 0.3 (0.0-0.7) K/uL Baso # (Auto) 0.0 (0.0-0.1) K/uL Nucleated RBC % 0.0 /100WBC Nucleated RBCs # 0 K/uL Sodium 137 (136-146) mmol/L Potassium 4.7 (3.5-5.1) mmol/L Chloride 106 (98-110) mmol/L Carbon Dioxide 24 (21-31) mmol/L BUN 32 H (6.0-23.0) mg/dL Creatinine 0.8 (0.6-1.5) mg/dL Est Cr Clr Drug Dosing 62.84 mL/min Estimated GFR (MDRD) > 60.0 ml/min Glucose 104 (60-110) mg/dL POC Glucose 108 (60-110) mg/dL Calcium 8.5 L (8.8-10.8) mg/dL Magnesium 2.0 (1.5-2.3) mEq/L Total Bilirubin 0.3 (0.1-1.5) mg/dL AST 40 (5-40) IU/L ALT 69 H (8-54) IU/L Alkaline Phosphatase 138 (40-150) Total Protein 6.4 (6.0-8.0) g/dL Albumin 3.4 L (3.5-5.0) g/dL Globulin 3.0 (2.0-3.5) g/dL Albumin/Globulin Ratio 1.1 L (1.3-2.8) 09/30/16 09/30/16 09/30/16 Range/Units 06:21 07:26 08:03 WBC (4.0-11.0) K/uL RBC (4.30-5.90) M/uL Hgb (12.0-16.0) g/dL Hct (36.0-46.0) % MCV (80.0-98.0) fL MCH (27.0-32.0) pg MCHC (31.0-37.0) g/dL RDW Std Deviation (28.0-62.0) fl RDW Coeff of Conor (11.0-15.0) % Plt Count (150-400) K/uL MPV (7.40-12.00) fL Neut % (Auto) (48.0-80.0) % Lymph % (Auto) (16.0-40.0) % [place] % (Auto) (0.0-15.0) % Eos % (Auto) (0.0-7.0) % Baso % (Auto) (0.0-1.5) % Neut # (Auto) (1.4-5.7) K/uL Lymph # (Auto) (0.6-2.4) K/uL [place] # (Auto) (0.0-0.8) K/uL Eos # (Auto) (0.0-0.7) K/uL Baso # (Auto) (0.0-0.1) K/uL Nucleated RBC % /100WBC Nucleated RBCs # K/uL Sodium (136-146) mmol/L Potassium (3.5-5.1) mmol/L Chloride (98-110) mmol/L Carbon Dioxide (21-31) mmol/L BUN (6.0-23.0) mg/dL Creatinine (0.6-1.5) mg/dL Est Cr Clr Drug Dosing mL/min Estimated GFR (MDRD) ml/min Glucose (60-110) mg/dL POC Glucose 78 73 98 (60-110) mg/dL Calcium (8.8-10.8) mg/dL Magnesium (1.5-2.3) mEq/L Total Bilirubin (0.1-1.5) mg/dL AST (5-40) IU/L ALT (8-54) IU/L Alkaline Phosphatase (40-150) Total Protein (6.0-8.0) g/dL Albumin (3.5-5.0) g/dL Globulin (2.0-3.5) g/dL Albumin/Globulin Ratio (1.3-2.8) 09/30/16 Range/Units 09:45 WBC (4.0-11.0) K/uL RBC (4.30-5.90) M/uL Hgb (12.0-16.0) g/dL Hct (36.0-46.0) % MCV (80.0-98.0) fL MCH (27.0-32.0) pg MCHC (31.0-37.0) g/dL RDW Std Deviation (28.0-62.0) fl RDW Coeff of Conor (11.0-15.0) % Plt Count (150-400) K/uL MPV (7.40-12.00) fL Neut % (Auto) (48.0-80.0) % Lymph % (Auto) (16.0-40.0) % [place] % (Auto) (0.0-15.0) % Eos % (Auto) (0.0-7.0) % Baso % (Auto) (0.0-1.5) % Neut # (Auto) (1.4-5.7) K/uL Lymph # (Auto) (0.6-2.4) K/uL [place] # (Auto) (0.0-0.8) K/uL Eos # (Auto) (0.0-0.7) K/uL Baso # (Auto) (0.0-0.1) K/uL Nucleated RBC % /100WBC Nucleated RBCs # K/uL Sodium (136-146) mmol/L Potassium (3.5-5.1) mmol/L Chloride (98-110) mmol/L Carbon Dioxide (21-31) mmol/L BUN (6.0-23.0) mg/dL Creatinine (0.6-1.5) mg/dL Est Cr Clr Drug Dosing mL/min Estimated GFR (MDRD) ml/min Glucose (60-110) mg/dL POC Glucose 85 (60-110) mg/dL Calcium (8.8-10.8) mg/dL Magnesium (1.5-2.3) mEq/L Total Bilirubin (0.1-1.5) mg/dL AST (5-40) IU/L ALT (8-54) IU/L Alkaline Phosphatase (40-150) Total Protein (6.0-8.0) g/dL Albumin (3.5-5.0) g/dL Globulin (2.0-3.5) g/dL Albumin/Globulin Ratio (1.3-2.8) Med Orders - Current: Current Medications Gabapentin (Neurontin) 900 mg PO BEDTIME [facility] Insulin Aspart (Novolog) 0 unit SUBCUT ACBED [facility] PRN Reason: Protocol Last Admin: 09/30/16 06:34 Dose: Not Given Insulin Glargine (Lantus Solostar) 40 units SUBCUT BID [facility] Last Admin: 09/30/16 09:55 Dose: Not Given Lisinopril (Prinivil) 20 mg PO BEDTIME [facility] Morphine Sulfate (Morphine) 4 mg IVPUSH Q2H PRN PRN Reason: Pain (severe 7-10) Stop: 09/30/16 22:45 Invokana 300 Mg 1 each PO DAILY [facility] Last Admin: 09/30/16 09:56 Dose: Not Given Desvenlafaxine 50 Mg 1 each PO DAILY [facility] Last Admin: 09/30/16 09:56 Dose: Not Given Pravastatin Sodium (Pravachol) 20 mg PO BEDTIME [facility] Temazepam (Restoril) 15 mg PO BEDTIME PRN PRN Reason: Sleep Discontinued Medications Sodium Chloride (Normal Saline) 1,000 mls @ 75 mls/hr IV STAT ONE Stop: 09/30/16 09:25 Last Admin: 09/29/16 20:19 Dose: 75 mls/hr Lisinopril (Prinivil) 20 mg PO DAILY [facility] Last Admin: 09/30/16 10:16 Dose: Not Given - Exam General: alert, oriented HEENT: Pupils equal, EOMI Neck: supple, trachea midline Lungs: Clear to auscultation, Normal respiratory effort Cardiovascular: Regular Rate, Regular Rhythm Abdomen: bowel sounds present, soft, no tenderness Back Exam: Normal Inspection, Full Range of Motion - Problem List Review Problem List Initiated/Reviewed/Updated: Yes - Plan Plan:: echo results pending gall bladder us: cholelithiasis. repeat LFTs AST, ALP wnl. on recent CT area of fatty infiltration of the liver noted. anticipate discharge today.
--- NOTE | 2016-09-30 10:54 | PCM.DCSUM1 ---
<Adrianna Hicks - Last Filed: 09/30/16 10:53> Discharge Summary - Discharge Data Discharge Date: 09/30/16 Discharge Disposition: Home, Self-Care 01 Condition: Good - Patient Instructions Diet: No Alcoholic Beverages, Diabetic Diet Driving: Do Not Drive Showering/Bathing: May Shower Notify Provider of: Fever, Increased Pain, Swelling and Redness, Drainage, Nausea and/or Vomiting - Discharge Plan Home Medications: Home Meds Gabapentin [Neurontin] 900 mg PO BEDTIME 11/24/14 [History] Insulin Glargine,Hum.Rec.Anlog [Lantus Solostar] 40 units SQ BID 11/24/14 [ History] Canagliflozin [Invokana] 300 mg PO DAILY 07/21/15 [History] Lisinopril 20 mg PO DAILY 07/21/15 [History] Desvenlafaxine [Desvenlafaxine ER] 50 mg PO DAILY 09/18/16 [History] Pravastatin [Pravachol] 20 mg PO DAILY 09/18/16 [History] Patient's Own Medication [Ptom] 1 each PO DAILY each 09/30/16 [Rx] Patient Handouts: Peripheral Edema Referrals: Mónica Reyes DO [Primary Care Provider] - 10/14/16 9:30 am - General Info Date of Service: 09/30/16 Functional Status: Reports: pain controlled, tolerating diet, ambulating, urinating - Review of Systems General: Reports: No Symptoms HEENT: Reports: no symptoms Pulmonary: Reports: no symptoms Cardiovascular: Reports: No Symptoms Gastrointestinal: Reports: No symptoms Genitourinary: Reports: no symptoms Musculoskeletal: Reports: no symptoms Skin: Reports: no symptoms Neurological: Reports: No Symptoms Psychiatric: Reports: no symptoms - Patient Data Vitals - Most Recent: Last Vital Signs Temp 96.8 F 09/30/16 08:00 Pulse 82 09/30/16 08:00 Resp 20 09/30/16 08:00 BP 129/77 09/30/16 08:00 Pulse Ox 97 09/30/16 08:00 Weight - Most Recent: 120 kg I&O - Last 24 hours: Intake & Output 09/29/16 09/30/16 09/30/16 22:59 06:59 14:59 Intake Total 419 Output Total 400 Balance 19 Lab Results - Last 24 hrs: Laboratory Results - last 24 hr 09/29/16 09/30/16 09/30/16 Range/Units 23:17 05:10 05:10 WBC 9.21 (4.0-11.0) K/uL RBC 3.68 L (4.30-5.90) M/uL Hgb 10.8 L (12.0-16.0) g/dL Hct 34.6 L (36.0-46.0) % MCV 94.0 (80.0-98.0) fL MCH 29.3 (27.0-32.0) pg MCHC 31.2 (31.0-37.0) g/dL RDW Std Deviation 46.0 (28.0-62.0) fl RDW Coeff of Conor 13 (11.0-15.0) % Plt Count 290 (150-400) K/uL MPV 9.00 (7.40-12.00) fL Neut % (Auto) 53.7 (48.0-80.0) % Lymph % (Auto) 34.2 (16.0-40.0) % [place] % (Auto) 8.5 (0.0-15.0) % Eos % (Auto) 3.4 (0.0-7.0) % Baso % (Auto) 0.2 (0.0-1.5) % Neut # (Auto) 5.0 (1.4-5.7) K/uL Lymph # (Auto) 3.2 H (0.6-2.4) K/uL [place] # (Auto) 0.8 (0.0-0.8) K/uL Eos # (Auto) 0.3 (0.0-0.7) K/uL Baso # (Auto) 0.0 (0.0-0.1) K/uL Nucleated RBC % 0.0 /100WBC Nucleated RBCs # 0 K/uL Sodium 137 (136-146) mmol/L Potassium 4.7 (3.5-5.1) mmol/L Chloride 106 (98-110) mmol/L Carbon Dioxide 24 (21-31) mmol/L BUN 32 H (6.0-23.0) mg/dL Creatinine 0.8 (0.6-1.5) mg/dL Est Cr Clr Drug Dosing 62.84 mL/min Estimated GFR (MDRD) > 60.0 ml/min Glucose 104 (60-110) mg/dL POC Glucose 108 (60-110) mg/dL Calcium 8.5 L (8.8-10.8) mg/dL Magnesium 2.0 (1.5-2.3) mEq/L Total Bilirubin 0.3 (0.1-1.5) mg/dL AST 40 (5-40) IU/L ALT 69 H (8-54) IU/L Alkaline Phosphatase 138 (40-150) Total Protein 6.4 (6.0-8.0) g/dL Albumin 3.4 L (3.5-5.0) g/dL Globulin 3.0 (2.0-3.5) g/dL Albumin/Globulin Ratio 1.1 L (1.3-2.8) 09/30/16 09/30/16 09/30/16 Range/Units 06:21 07:26 08:03 WBC (4.0-11.0) K/uL RBC (4.30-5.90) M/uL Hgb (12.0-16.0) g/dL Hct (36.0-46.0) % MCV (80.0-98.0) fL MCH (27.0-32.0) pg MCHC (31.0-37.0) g/dL RDW Std Deviation (28.0-62.0) fl RDW Coeff of Conor (11.0-15.0) % Plt Count (150-400) K/uL MPV (7.40-12.00) fL Neut % (Auto) (48.0-80.0) % Lymph % (Auto) (16.0-40.0) % [place] % (Auto) (0.0-15.0) % Eos % (Auto) (0.0-7.0) % Baso % (Auto) (0.0-1.5) % Neut # (Auto) (1.4-5.7) K/uL Lymph # (Auto) (0.6-2.4) K/uL [place] # (Auto) (0.0-0.8) K/uL Eos # (Auto) (0.0-0.7) K/uL Baso # (Auto) (0.0-0.1) K/uL Nucleated RBC % /100WBC Nucleated RBCs # K/uL Sodium (136-146) mmol/L Potassium (3.5-5.1) mmol/L Chloride (98-110) mmol/L Carbon Dioxide (21-31) mmol/L BUN (6.0-23.0) mg/dL Creatinine (0.6-1.5) mg/dL Est Cr Clr Drug Dosing mL/min Estimated GFR (MDRD) ml/min Glucose (60-110) mg/dL POC Glucose 78 73 98 (60-110) mg/dL Calcium (8.8-10.8) mg/dL Magnesium (1.5-2.3) mEq/L Total Bilirubin (0.1-1.5) mg/dL AST (5-40) IU/L ALT (8-54) IU/L Alkaline Phosphatase (40-150) Total Protein (6.0-8.0) g/dL Albumin (3.5-5.0) g/dL Globulin (2.0-3.5) g/dL Albumin/Globulin Ratio (1.3-2.8) 09/30/16 Range/Units 09:45 WBC (4.0-11.0) K/uL RBC (4.30-5.90) M/uL Hgb (12.0-16.0) g/dL Hct (36.0-46.0) % MCV (80.0-98.0) fL MCH (27.0-32.0) pg MCHC (31.0-37.0) g/dL RDW Std Deviation (28.0-62.0) fl RDW Coeff of Conor (11.0-15.0) % Plt Count (150-400) K/uL MPV (7.40-12.00) fL Neut % (Auto) (48.0-80.0) % Lymph % (Auto) (16.0-40.0) % [place] % (Auto) (0.0-15.0) % Eos % (Auto) (0.0-7.0) % Baso % (Auto) (0.0-1.5) % Neut # (Auto) (1.4-5.7) K/uL Lymph # (Auto) (0.6-2.4) K/uL [place] # (Auto) (0.0-0.8) K/uL Eos # (Auto) (0.0-0.7) K/uL Baso # (Auto) (0.0-0.1) K/uL Nucleated RBC % /100WBC Nucleated RBCs # K/uL Sodium (136-146) mmol/L Potassium (3.5-5.1) mmol/L Chloride (98-110) mmol/L Carbon Dioxide (21-31) mmol/L BUN (6.0-23.0) mg/dL Creatinine (0.6-1.5) mg/dL Est Cr Clr Drug Dosing mL/min Estimated GFR (MDRD) ml/min Glucose (60-110) mg/dL POC Glucose 85 (60-110) mg/dL Calcium (8.8-10.8) mg/dL Magnesium (1.5-2.3) mEq/L Total Bilirubin (0.1-1.5) mg/dL AST (5-40) IU/L ALT (8-54) IU/L Alkaline Phosphatase (40-150) Total Protein (6.0-8.0) g/dL Albumin (3.5-5.0) g/dL Globulin (2.0-3.5) g/dL Albumin/Globulin Ratio (1.3-2.8) Med Orders - Current: Current Medications Gabapentin (Neurontin) 900 mg PO BEDTIME [facility] Insulin Aspart (Novolog) 0 unit SUBCUT ACBED [facility] PRN Reason: Protocol Last Admin: 09/30/16 06:34 Dose: Not Given Insulin Glargine (Lantus Solostar) 40 units SUBCUT BID [facility] Last Admin: 09/30/16 09:55 Dose: Not Given Lisinopril (Prinivil) 20 mg PO BEDTIME [facility] Morphine Sulfate (Morphine) 4 mg IVPUSH Q2H PRN PRN Reason: Pain (severe 7-10) Stop: 09/30/16 22:45 Invokana 300 Mg 1 each PO DAILY [facility] Last Admin: 09/30/16 09:56 Dose: Not Given Desvenlafaxine 50 Mg 1 each PO DAILY [facility] Last Admin: 09/30/16 09:56 Dose: Not Given Pravastatin Sodium (Pravachol) 20 mg PO BEDTIME [facility] Temazepam (Restoril) 15 mg PO BEDTIME PRN PRN Reason: Sleep Discontinued Medications Sodium Chloride (Normal Saline) 1,000 mls @ 75 mls/hr IV STAT ONE Stop: 09/30/16 09:25 Last Admin: 09/29/16 20:19 Dose: 75 mls/hr Lisinopril (Prinivil) 20 mg PO DAILY [facility] Last Admin: 09/30/16 10:16 Dose: Not Given - Exam General: Reports: alert, oriented HEENT: Reports: Pupils equal, EOMI Neck: Reports: supple, trachea midline Lungs: Reports: Clear to auscultation, Normal respiratory effort Cardiovascular: Reports: Regular Rate, Regular Rhythm Abdomen: Reports: bowel sounds present, soft, no tenderness, no distension Back Exam: Reports: Normal Inspection Extremities: Reports: edema Skin: Reports: warm, dry, intact Neurological: Reports: no new focal deficit Psy/Mental Status: Reports: alert, normal affect, normal mood *Q Meaningful Use (DIS) - VTE *Q VTE Criteria *Q: - Stroke *Q Stroke Criteria *Q: - AMI *Q AMI Criteria *Q: <Jeff Graf - Last Filed: 09/30/16 15:29> Discharge Summary - Hospital Course Brief History: she was admitted from the ED for abdominal bloating. Her LFT's were elevated. - Discharge Diagnosis/Problem(s) (1) Peripheral edema SNOMED Code(s): 848136203 ICD Code: R60.9 - EDEMA, UNSPECIFIED Status: Acute (2) Elevated liver enzymes SNOMED Code(s): 054396331, 017276366 ICD Code: R74.8 - ABNORMAL LEVELS OF OTHER SERUM ENZYMES Status: Acute (3) Cholelithiasis SNOMED Code(s): 765640736 ICD Code: K80.20 - CALCULUS OF GALLBLADDER W/O CHOLECYSTITIS W/O OBSTRUCTION Status: Acute (4) Diabetes SNOMED Code(s): 68775401 ICD Code: E11.9 - TYPE 2 DIABETES MELLITUS WITHOUT COMPLICATIONS Status: Acute - Patient Summary/Data Hospital Course: There was some initial concern that she might have an element of CHF . However, I did not think that she had CHF clinically. She was treated symptomatically. abdominal ultrasound showed gallstones and evidence of cholecystitis. She is eating without vomiting and has only mild pain at discharge. Because of the question of CHF, echocardiogram was performed. Cardiology department reading is pending at discharge. She is to follow up with Dr Cameron, her PCP . She plans to seek consultation for cholecystectomy low fat bland diet with small meals recommended. MD Buddy - Patient Data Vitals - Most Recent: Last Vital Signs Temp 96.8 F 09/30/16 08:00 Pulse 82 09/30/16 08:00 Resp 20 09/30/16 08:00 BP 129/77 09/30/16 08:00 Pulse Ox 97 09/30/16 08:00 I&O - Last 24 hours: Intake & Output 09/30/16 09/30/16 09/30/16 06:59 14:59 22:59 Intake Total 419 400 Output Total 400 300 Balance 19 100 Lab Results - Last 24 hrs: Laboratory Results - last 24 hr 09/29/16 09/30/16 09/30/16 Range/Units 23:17 05:10 05:10 WBC 9.21 (4.0-11.0) K/uL RBC 3.68 L (4.30-5.90) M/uL Hgb 10.8 L (12.0-16.0) g/dL Hct 34.6 L (36.0-46.0) % MCV 94.0 (80.0-98.0) fL MCH 29.3 (27.0-32.0) pg MCHC 31.2 (31.0-37.0) g/dL RDW Std Deviation 46.0 (28.0-62.0) fl RDW Coeff of Conor 13 (11.0-15.0) % Plt Count 290 (150-400) K/uL MPV 9.00 (7.40-12.00) fL Neut % (Auto) 53.7 (48.0-80.0) % Lymph % (Auto) 34.2 (16.0-40.0) % [place] % (Auto) 8.5 (0.0-15.0) % Eos % (Auto) 3.4 (0.0-7.0) % Baso % (Auto) 0.2 (0.0-1.5) % Neut # (Auto) 5.0 (1.4-5.7) K/uL Lymph # (Auto) 3.2 H (0.6-2.4) K/uL [place] # (Auto) 0.8 (0.0-0.8) K/uL Eos # (Auto) 0.3 (0.0-0.7) K/uL Baso # (Auto) 0.0 (0.0-0.1) K/uL Nucleated RBC % 0.0 /100WBC Nucleated RBCs # 0 K/uL Sodium 137 (136-146) mmol/L Potassium 4.7 (3.5-5.1) mmol/L Chloride 106 (98-110) mmol/L Carbon Dioxide 24 (21-31) mmol/L BUN 32 H (6.0-23.0) mg/dL Creatinine 0.8 (0.6-1.5) mg/dL Est Cr Clr Drug Dosing 62.84 mL/min Estimated GFR (MDRD) > 60.0 ml/min Glucose 104 (60-110) mg/dL POC Glucose 108 (60-110) mg/dL Calcium 8.5 L (8.8-10.8) mg/dL Magnesium 2.0 (1.5-2.3) mEq/L Total Bilirubin 0.3 (0.1-1.5) mg/dL AST 40 (5-40) IU/L ALT 69 H (8-54) IU/L Alkaline Phosphatase 138 (40-150) Total Protein 6.4 (6.0-8.0) g/dL Albumin 3.4 L (3.5-5.0) g/dL Globulin 3.0 (2.0-3.5) g/dL Albumin/Globulin Ratio 1.1 L (1.3-2.8) 09/30/16 09/30/16 09/30/16 Range/Units 06:21 07:26 08:03 WBC (4.0-11.0) K/uL RBC (4.30-5.90) M/uL Hgb (12.0-16.0) g/dL Hct (36.0-46.0) % MCV (80.0-98.0) fL MCH (27.0-32.0) pg MCHC (31.0-37.0) g/dL RDW Std Deviation (28.0-62.0) fl RDW Coeff of Conor (11.0-15.0) % Plt Count (150-400) K/uL MPV (7.40-12.00) fL Neut % (Auto) (48.0-80.0) % Lymph % (Auto) (16.0-40.0) % [place] % (Auto) (0.0-15.0) % Eos % (Auto) (0.0-7.0) % Baso % (Auto) (0.0-1.5) % Neut # (Auto) (1.4-5.7) K/uL Lymph # (Auto) (0.6-2.4) K/uL [place] # (Auto) (0.0-0.8) K/uL Eos # (Auto) (0.0-0.7) K/uL Baso # (Auto) (0.0-0.1) K/uL Nucleated RBC % /100WBC Nucleated RBCs # K/uL Sodium (136-146) mmol/L Potassium (3.5-5.1) mmol/L Chloride (98-110) mmol/L Carbon Dioxide (21-31) mmol/L BUN (6.0-23.0) mg/dL Creatinine (0.6-1.5) mg/dL Est Cr Clr Drug Dosing mL/min Estimated GFR (MDRD) ml/min Glucose (60-110) mg/dL POC Glucose 78 73 98 (60-110) mg/dL Calcium (8.8-10.8) mg/dL Magnesium (1.5-2.3) mEq/L Total Bilirubin (0.1-1.5) mg/dL AST (5-40) IU/L ALT (8-54) IU/L Alkaline Phosphatase (40-150) Total Protein (6.0-8.0) g/dL Albumin (3.5-5.0) g/dL Globulin (2.0-3.5) g/dL Albumin/Globulin Ratio (1.3-2.8) 09/30/16 Range/Units 09:45 WBC (4.0-11.0) K/uL RBC (4.30-5.90) M/uL Hgb (12.0-16.0) g/dL Hct (36.0-46.0) % MCV (80.0-98.0) fL MCH (27.0-32.0) pg MCHC (31.0-37.0) g/dL RDW Std Deviation (28.0-62.0) fl RDW Coeff of Conor (11.0-15.0) % Plt Count (150-400) K/uL MPV (7.40-12.00) fL Neut % (Auto) (48.0-80.0) % Lymph % (Auto) (16.0-40.0) % [place] % (Auto) (0.0-15.0) % Eos % (Auto) (0.0-7.0) % Baso % (Auto) (0.0-1.5) % Neut # (Auto) (1.4-5.7) K/uL Lymph # (Auto) (0.6-2.4) K/uL [place] # (Auto) (0.0-0.8) K/uL Eos # (Auto) (0.0-0.7) K/uL Baso # (Auto) (0.0-0.1) K/uL Nucleated RBC % /100WBC Nucleated RBCs # K/uL Sodium (136-146) mmol/L Potassium (3.5-5.1) mmol/L Chloride (98-110) mmol/L Carbon Dioxide (21-31) mmol/L BUN (6.0-23.0) mg/dL Creatinine (0.6-1.5) mg/dL Est Cr Clr Drug Dosing mL/min Estimated GFR (MDRD) ml/min Glucose (60-110) mg/dL POC Glucose 85 (60-110) mg/dL Calcium (8.8-10.8) mg/dL Magnesium (1.5-2.3) mEq/L Total Bilirubin (0.1-1.5) mg/dL AST (5-40) IU/L ALT (8-54) IU/L Alkaline Phosphatase (40-150) Total Protein (6.0-8.0) g/dL Albumin (3.5-5.0) g/dL Globulin (2.0-3.5) g/dL Albumin/Globulin Ratio (1.3-2.8) Med Orders - Current: Current Medications Discontinued Medications Gabapentin (Neurontin) 900 mg PO BEDTIME BROWN Sodium Chloride (Normal Saline) 1,000 mls @ 75 mls/hr IV STAT ONE Stop: 09/30/16 09:25 Last Admin: 09/29/16 20:19 Dose: 75 mls/hr Insulin Aspart (Novolog) 0 unit SUBCUT ACBED BROWN PRN Reason: Protocol Last Admin: 09/30/16 06:34 Dose: Not Given Insulin Glargine (Lantus Solostar) 40 units SUBCUT BID [facility] Last Admin: 09/30/16 09:55 Dose: Not Given Lisinopril (Prinivil) 20 mg PO DAILY [facility] Last Admin: 09/30/16 10:16 Dose: Not Given Lisinopril (Prinivil) 20 mg PO BEDTIME BROWN Morphine Sulfate (Morphine) 4 mg IVPUSH Q2H PRN PRN Reason: Pain (severe 7-10) Stop: 09/30/16 22:45 Invokana 300 Mg 1 each PO DAILY [facility] Last Admin: 09/30/16 09:56 Dose: Not Given Desvenlafaxine 50 Mg 1 each PO DAILY [facility] Last Admin: 09/30/16 09:56 Dose: Not Given Pravastatin Sodium (Pravachol) 20 mg PO BEDTIME BROWN Temazepam (Restoril) 15 mg PO BEDTIME PRN PRN Reason: Sleep *Q Meaningful Use (DIS) - VTE *Q VTE Criteria *Q: - Stroke *Q Stroke Criteria *Q: - AMI *Q AMI Criteria *Q:
--- NOTE | 2016-09-30 13:21 | CR ---
EXAM DATE: 09/29/16 PATIENT'S AGE: 56 Patient: ILAN HERNANDEZ Facility: [place], [place] Site . Site : [id number] Study: XRay Chest [id number]/12/2017 9:47:06 PM Ordering Physician: Doctor Anderson Final Report: INDICATIONS: Legs and feet swelling. Shortness of breath. Rapid weight gain. History of gallstones. TECHNIQUE: Chest 2 view. COMPARISON: Chest radiograph September 18, 2016. FINDINGS: No pneumothorax or pleural effusion. Right basilar scarring or atelectasis. Calcified granuloma at the periphery of the left lung base is unchanged. Lungs are otherwise clear. Aortic atherosclerosis. Cardiac and mediastinal contours are stable. No pulmonary edema. Upper abdomen and osseous structures show no acute abnormality. Left shoulder arthroplasty. IMPRESSION: No evidence of acute cardiopulmonary disease. Dictated by Frankie Munoz MD @ 09/29/2016 10:08:04 PM Dictated by: Frankie Munoz MD @ 09/29/2016 22:08:11 (Electronic Signature) Report Signed by Proxy. [facility]
[2016-09-30] MEDS ORDERED: Pravastatin 40 MG Tab PO SCH (21:00)
[2016-09-30] MEDS ORDERED: Gabapentin 300 MG Cap PO SCH (21:00)
--- NOTE | 2016-10-01 13:48 | ECHO ---
EXAM DATE: 09/29/16 PATIENT'S AGE: 56 The echocardiogram report can be seen in this patient's EMR (Electronic Medical Record) in the Reports section. The report has also been scanned into PACS. JONATHAN
== END 2016-09-30 11:25 | disposition home or self-care (01) ==
LOC: MW.ED 19:52 → MW.MS 21:42 → INTOOBSV 21:42 → UNDOADMOB 21:42 → MW.MS 22:44
PROVIDERS: ADMIT Family Medicine; ATTEND Family Medicine
DX: R60.9 Edema, unspecified (principal); R74.8 Abnormal levels of other serum enzymes; K80.20 Calculus of gallbladder without cholecystitis without obstruction; E11.9 Type 2 diabetes mellitus without complications; I10 Essential (primary) hypertension; G47.30 Sleep apnea, unspecified; M19.90 Unspecified osteoarthritis, unspecified site; F41.9 Anxiety disorder, unspecified; Z87.440 Personal history of urinary (tract) infections; Z79.4 Long term (current) use of insulin; Z79.84 Long term (current) use of oral hypoglycemic drugs; Z79.899 Other long term (current) drug therapy; Z88.0 Allergy status to penicillin; Z88.6 Allergy status to analgesic agent; Z91.013 Allergy to seafood; Z98.890 Other specified postprocedural states
CPT/HCPCS: 36415; 71020; 76705; 80053; 81001; 82962; 83735; 83880; 85025; 93306; 96360; 96361; 99285; G0378; J1815; J7040; 99283

== ENCOUNTER 2018-05-07 08:36 | Emergency (ER) | payer OTHER ==
[2018-05-07] MEDS ORDERED: Sodium Chloride 0.9% 10 ML Syringe FLUSH PRN (08:55)
[2018-05-07] MEDS ORDERED: Sodium Chloride 0.9% 2.5 ML Syringe FLUSH PRN (08:55)
--- NOTE | 2018-05-07 09:24 | CR ---
INDICATION: Pain and shortness of breath. TECHNIQUE: Portable chest 1 view. COMPARISON: None. FINDINGS: The patient has had a prior median sternotomy. The cardiac silhouette is mildly enlarged. The pulmonary vasculature is somewhat prominent with no interstitial edema identified. The patient is rotated slightly on this examination. A patchy left retrocardiac infiltrate is evident. A small left effusion cannot be excluded. There is a left shoulder arthroplasty with no additional osseous abnormalities. IMPRESSION: Patchy left basilar infiltrate with probable small left effusion. Dictated by Markell Hi MD @ May 07 2018 9:21AM Signed by Dr. Markell Hi @ May 07 2018 9:24AM
--- NOTE | 2018-05-07 10:36 | EDM.PDOC ---
ED HPI GENERAL MEDICAL PROBLEM - General Chief Complaint: Respiratory Problem Stated Complaint: SWOLLEN LEGS SHORTNESS OF BREATH Time Seen by Provider: 05/07/18 08:54 chest incisoin pain Pain Score (Numeric/FACES): 3 - Related Data Allergies Allergy/AdvReac Type Severity Reaction Status Date / Time amoxicillin Allergy Hives Verified 05/07/18 08:45 aspirin Allergy Hives Verified 05/07/18 08:45 Fish Containing Products Allergy Nausea and Verified 05/07/18 08:45 Vomiting ibuprofen Allergy Hives Verified 05/07/18 08:45 Home Meds: Home Meds Acetaminophen [Mapap] 650 mg PO Q6HR 05/07/18 [History] Carvedilol 3.125 mg PO BID 05/07/18 [History] Clopidogrel [Plavix] 75 mg PO DAILY 05/07/18 [History] Desvenlafaxine [Desvenlafaxine ER] 1 tab PO DAILY 05/07/18 [History] Diclofenac Sodium [Voltaren 1% Gel] 1 dose TOP ASDIRECTED 05/07/18 [History] Docusate Sodium 200 mg PO BID 05/07/18 [History] Ferrous Sulfate [Slow Fe] 325 mg PO BID 05/07/18 [History] Gabapentin [Neurontin] 900 mg PO BEDTIME 05/07/18 [History] Insulin Aspart [NovoLOG] 40 units INJECT ASDIRECTED 05/07/18 [History] Insulin Glarg,Human.Rec.Analog [Lantus] 60 units INJECT BEDTIME 05/07/18 [ History] Insulin Glarg,Human.Rec.Analog [Lantus] 80 units INJECT ACBREAKFAST 05/07/18 [ History] Ranitidine [Zantac] 300 mg PO BEDTIME 05/07/18 [History] Sacubitril/Valsartan [Entresto 97 mg-103 mg Tablet] 1 tab PO BID 05/07/18 [ History] atorvaSTATin [Lipitor] 40 mg PO BEDTIME 05/07/18 [History] metroNIDAZOLE [Metrogel] 1 dose TOP ASDIRECTED 05/07/18 [History] Past Medical History HEENT History: Reports: Impaired Vision Other HEENT History: wears glasses, beginning diabetic retinopathy Cardiovascular History: Reports: High Cholesterol, [place] Respiratory History: Reports: Sleep Apnea, Other (See Below) Other Respiratory History: Non recurrent Bronchitis and Pneumonia Gastrointestinal History: Reports: GERD, Hiatal Hernia Genitourinary History: Reports: UTI, Recurrent Other Genitourinary History: yeast infections 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[employer] CONSULTANT History: Laparoscopy and D&C, PCOS Musculoskeletal History: Reports: Arthritis, Fracture Other Musculoskeletal History: hx of fx right arm, right big toe fracture and surgery Neurological History: Reports: None Psychiatric History: Reports: Anxiety, PTSD Other Psychiatric History: refuses pre-op sedation for PTSD Endocrine/Metabolic History: Reports: Diabetes, Type II, Obesity/BMI 30+ Hematologic History: Reports: None Immunologic History: Reports: None Oncologic (Cancer) History: Reports: None Dermatologic History: Reports: Other (See Below) Other Dermatologic History: frequent scratching causing open sores - Infectious Disease History Infectious Disease History: Reports: Chicken Pox - Past Surgical History Head Surgeries/Procedures: Reports: None HEENT Surgical History: Reports: None Cardiovascular Surgical History: Reports: Coronary Artery Bypass Respiratory Surgical History: Reports: None GI Surgical History: Reports: Cholecystectomy, EGD Female Surgical History: Reports: Breast Reduction Endocrine Surgical History: Reports: None Neurological Surgical History: Reports: None Musculoskeletal Surgical History: Reports: Shoulder Replacement Oncologic Surgical History: Reports: None Dermatological Surgical History: Reports: None Social & Family History - Family History Family Medical History: Noncontributory - Tobacco Use Smoking Status *Q: Never Smoker Second Hand Smoke Exposure: No - Caffeine Use Caffeine Use: Reports: Tea Caffeine Use Comment: "1 every couple of day" - Recreational Drug Use Recreational Drug Use: No ED ROS GENERAL - Review of Systems Review Of Systems: ROS reveals no pertinent complaints other than HPI. ED EXAM, GENERAL - Physical Exam Exam: See Below (See dictation) Course - Vital Signs Last Recorded V/S: Last Vital Signs Temp 35.5 C 05/07/18 08:45 Pulse 86 05/07/18 08:45 Resp 20 05/07/18 08:45 BP 110/69 05/07/18 08:45 Pulse Ox 99 05/07/18 08:54 - Orders/Labs/Meds Orders: Active Orders 24 hr Category Date Time Status Cardiac Monitoring [RC] . DIRECTED Care 05/07/18 08:54 Active EKG Documentation Completion [RC] STAT Care 05/07/18 08:54 Active Oxygen Therapy, ED [RC] ASDIRECTED Care 05/07/18 08:54 Active Pulse Oximetry [RC] ASDIRECTED Care 05/07/18 08:54 Active Urinary Catheter Assessment [RC] ASDIRECTED Care 05/07/18 09:14 Active Urinary Catheter Insertion [Insert Urinary Catheter] [ Care 05/07/18 09:14 Ordered OM.PC] Stat Sodium Chloride 0.9% [Saline Flush] Med 05/07/18 08:55 Active 10 ml FLUSH ASDIRECTED PRN Sodium Chloride 0.9% [Saline Flush] Med 05/07/18 08:55 Active 2.5 ml FLUSH ASDIRECTED PRN Saline Lock Insert [OM.PC] Stat Oth 05/07/18 08:54 Ordered Medication Orders Sodium Chloride (Saline Flush) 10 ml FLUSH ASDIRECTED PRN PRN Reason: Keep Vein Open Sodium Chloride (Saline Flush) 2.5 ml FLUSH ASDIRECTED PRN PRN Reason: Keep Vein Open Labs: Laboratory Tests 05/07/18 05/07/18 05/07/18 Range/Units 09:20 09:26 09:26 WBC 12.81 H (4.0-11.0) K/uL RBC 2.82 L (4.30-5.90) M/uL Hgb 8.5 L (12.0-16.0) g/dL Hct 26.7 L (36.0-46.0) % MCV 94.7 (80.0-98.0) fL MCH 30.1 (27.0-32.0) pg MCHC 31.8 (31.0-37.0) g/dL RDW Std Deviation 50.0 (28.0-62.0) fl RDW Coeff of Conor 16 H (11.0-15.0) % Plt Count 312 (150-400) K/uL MPV 8.70 (7.40-12.00) fL Neut % (Auto) 75.7 (48.0-80.0) % Lymph % (Auto) 16.2 (16.0-40.0) % [place] % (Auto) 5.9 (0.0-15.0) % Eos % (Auto) 2.0 (0.0-7.0) % Baso % (Auto) 0.2 (0.0-1.5) % Neut # (Auto) 9.7 H (1.4-5.7) K/uL Lymph # (Auto) 2.1 (0.6-2.4) K/uL [place] # (Auto) 0.8 (0.0-0.8) K/uL Eos # (Auto) 0.3 (0.0-0.7) K/uL Baso # (Auto) 0.0 (0.0-0.1) K/uL Nucleated RBC % 0.8 /100WBC Nucleated RBCs # 0 K/uL INR 1.02 ABG pH 7.477 H (7.35-7.45) ABG pCO2 39 (35-45) mmHG ABG pO2 96 (75-100) mmHG ABG HCO3 29 H (22-26) mEq/L ABG Total CO2 27.3 ABG Base Excess 5.0 H (-2.0-2.0) Sodium (136-145) mmol/L Potassium (3.5-5.1) mmol/L Chloride (98-107) mmol/L Carbon Dioxide (21.0-32.0) mmol/L BUN (7.0-18.0) mg/dL Creatinine (0.6-1.0) mg/dL Est Cr Clr Drug Dosing mL/min Estimated GFR (MDRD) ml/min Glucose (74-106) mg/dL Calcium (8.5-10.1) mg/dL Total Bilirubin (0.2-1.0) mg/dL AST (15-37) IU/L ALT (14-63) IU/L Alkaline Phosphatase (46-116) U/L Troponin I (0.000-0.056) ng/mL B-Natriuretic Peptide (<100) PG/ML Total Protein (6.4-8.2) g/dL Albumin (3.4-5.0) g/dL Globulin (2.6-4.0) g/dL Albumin/Globulin Ratio (0.9-1.6) 05/07/18 05/07/18 Range/Units 09:26 09:26 WBC (4.0-11.0) K/uL RBC (4.30-5.90) M/uL Hgb (12.0-16.0) g/dL Hct (36.0-46.0) % MCV (80.0-98.0) fL MCH (27.0-32.0) pg MCHC (31.0-37.0) g/dL RDW Std Deviation (28.0-62.0) fl RDW Coeff of Conor (11.0-15.0) % Plt Count (150-400) K/uL MPV (7.40-12.00) fL Neut % (Auto) (48.0-80.0) % Lymph % (Auto) (16.0-40.0) % [place] % (Auto) (0.0-15.0) % Eos % (Auto) (0.0-7.0) % Baso % (Auto) (0.0-1.5) % Neut # (Auto) (1.4-5.7) K/uL Lymph # (Auto) (0.6-2.4) K/uL [place] # (Auto) (0.0-0.8) K/uL Eos # (Auto) (0.0-0.7) K/uL Baso # (Auto) (0.0-0.1) K/uL Nucleated RBC % /100WBC Nucleated RBCs # K/uL INR ABG pH (7.35-7.45) ABG pCO2 (35-45) mmHG ABG pO2 (75-100) mmHG ABG HCO3 (22-26) mEq/L ABG Total CO2 ABG Base Excess (-2.0-2.0) Sodium 133 L (136-145) mmol/L Potassium 3.5 (3.5-5.1) mmol/L Chloride 98 (98-107) mmol/L Carbon Dioxide 28.6 (21.0-32.0) mmol/L BUN 24 H (7.0-18.0) mg/dL Creatinine 1.1 H (0.6-1.0) mg/dL Est Cr Clr Drug Dosing 44.63 mL/min Estimated GFR (MDRD) 51.2 ml/min Glucose 220 H (74-106) mg/dL Calcium 9.0 (8.5-10.1) mg/dL Total Bilirubin 0.6 (0.2-1.0) mg/dL AST 25 (15-37) IU/L ALT 28 (14-63) IU/L Alkaline Phosphatase 79 (46-116) U/L Troponin I 0.235 H* (0.000-0.056) ng/mL B-Natriuretic Peptide 680 H (<100) PG/ML Total Protein 6.8 (6.4-8.2) g/dL Albumin 2.7 L (3.4-5.0) g/dL Globulin 4.1 H (2.6-4.0) g/dL Albumin/Globulin Ratio 0.7 L (0.9-1.6) Meds: Medications Generic Name Dose Route Start Last Admin Trade Name Freq PRN Reason Stop Dose Admin Sodium Chloride 10 ml 05/07/18 08:55 Saline Flush FLUSH ASDIRECTED PRN Keep Vein Open Sodium Chloride 2.5 ml 05/07/18 08:55 Saline Flush FLUSH ASDIRECTED PRN Keep Vein Open Departure - Departure Time of Disposition: 10:35 Disposition: DC/Tfer to Acute Hospital 02 Condition: Fair Clinical Impression: Dyspnea, Hypoxemia, History of coronary artery bypass graft - Discharge Information Referrals: PCP,Unknown [Primary Care Provider] - - My Orders Last 24 Hours: My Active Orders 05/07/18 08:54 Cardiac Monitoring [RC] . DIRECTED EKG Documentation Completion [RC] STAT Oxygen Therapy, ED [RC] ASDIRECTED Pulse Oximetry [RC] ASDIRECTED Saline Lock Insert [OM.PC] Stat 05/07/18 08:55 Sodium Chloride 0.9% [Saline Flush] 10 ml FLUSH ASDIRECTED PRN Sodium Chloride 0.9% [Saline Flush] 2.5 ml FLUSH ASDIRECTED PRN 05/07/18 09:14 Urinary Catheter Assessment [RC] ASDIRECTED Urinary Catheter Insertion [Insert Urinary Catheter] [OM.PC] Stat - Assessment/Plan Last 24 Hours: My Active Orders 05/07/18 08:54 Cardiac Monitoring [RC] . DIRECTED EKG Documentation Completion [RC] STAT Oxygen Therapy, ED [RC] ASDIRECTED Pulse Oximetry [RC] ASDIRECTED Saline Lock Insert [OM.PC] Stat 05/07/18 08:55 Sodium Chloride 0.9% [Saline Flush] 10 ml FLUSH ASDIRECTED PRN Sodium Chloride 0.9% [Saline Flush] 2.5 ml FLUSH ASDIRECTED PRN 05/07/18 09:14 Urinary Catheter Assessment [RC] ASDIRECTED Urinary Catheter Insertion [Insert Urinary Catheter] [OM.PC] Stat
[2018-05-07 10:58] VITALS: BP 113/62
== END 2018-05-07 11:23 ==
LOC: MW.ED 08:36
DX: R09.02 Hypoxemia (principal); R06.00 Dyspnea, unspecified; I25.2 Old myocardial infarction; E11.319 Type 2 diabetes mellitus with unspecified diabetic retinopathy without macular edema; E66.9 Obesity, unspecified; Z95.1 Presence of aortocoronary bypass graft; Z88.1 Allergy status to other antibiotic agents; Z88.8 Allergy status to other drugs, medicaments and biological substances; Z91.013 Allergy to seafood; Z79.899 Other long term (current) drug therapy; Z79.4 Long term (current) use of insulin
CPT/HCPCS: 36600; 71045; 71045-26; 80053; 82803; 83880; 84484; 85025; 85610; 93005; 99283; 99285-25

== ENCOUNTER 2018-10-02 07:51 | Emergency (ER) | payer OTHER ==
[2018-10-02] MEDS ORDERED: Sodium Chloride 0.9% 10 ML Syringe FLUSH PRN (07:55)
[2018-10-02] MEDS ORDERED: Sodium Chloride 0.9% 2.5 ML Syringe FLUSH PRN (07:55)
--- NOTE | 2018-10-02 08:00 | EDM.PDOC ---
ED HPI GENERAL MEDICAL PROBLEM - General Stated Complaint: CHEST PAIN Time Seen by Provider: 10/02/18 07:54 Source of Information: Reports: Patient History Limitations: Reports: No Limitations - History of Present Illness INITIAL COMMENTS - FREE TEXT/NARRATIVE: History of present illness: []Patient presents with an episode of chest tightness, rapid heartbeat and vertigo type dizziness that occurred this morning. Her chest tightness lasted for about 1 minute and spontaneously subsided. Patient had a quadruple bypass in April this year and a pacemaker placed in August. Review of systems: As per history of present illness and below otherwise all systems reviewed and negative. Past medical history: As per history of present illness and as reviewed below otherwise noncontributory. Surgical history: As per history of present illness and as reviewed below otherwise noncontributory. Social history: No reported history of drug or alcohol abuse. Family history: As per history of present illness and as reviewed below otherwise noncontributory. Physical exam: General: Well developed, well nourished in NAD HEENT: Atraumatic, normocephalic, pupils reactive, negative for conjunctival pallor or scleral icterus, mucous membranes moist, throat clear, neck supple, nontender, trachea midline. Lungs: Clear to auscultation, breath sounds equal bilaterally, chest nontender. No rales or crackles at the bases Heart: S1S2, regular, negative for clicks, rubs, or JVD. No peripheral edema Abdomen: NABS, Soft, nondistended, nontender. Negative for masses or hepatosplenomegaly. Negative for costovertebral tenderness. Pelvis: Stable nontender. Genitourinary: Deferred. Rectal: Deferred. Extremities: Atraumatic, negative for cords or calf pain. Neurovascular unremarkable. Neuro: Awake, alert, oriented. Cranial nerves II through XII unremarkable. Cerebellum unremarkable. Motor and sensory unremarkable throughout. Exam nonfocal. Skin:warm and dry Diagnostics: EKG, CBC, chemistry, troponin, chest x-ray Therapeutics: IV hydration ED Course: Patient was mildly hypotensive but Improved small fluid bolus patient feels better Impression: Dizziness lately due to hypotension Prescriptions: None Plan: Take meds as directed, follow up with your primary care physician, return to ER if symptoms worsen or change. Definitive disposition and diagnosis as appropriate pending reevaluation and review of above. - Related Data Allergies Allergy/AdvReac Type Severity Reaction Status Date / Time amoxicillin Allergy Hives Verified 10/02/18 08:46 aspirin Allergy Hives Verified 10/02/18 08:46 Fish Containing Products Allergy Nausea and Verified 10/02/18 08:46 Vomiting ibuprofen Allergy Hives Verified 10/02/18 08:46 Home Meds: Home Meds Clopidogrel [Plavix] 75 mg PO DAILY 05/07/18 [History] Desvenlafaxine [Desvenlafaxine ER] 100 mg PO DAILY 05/07/18 [History] Ferrous Sulfate [Slow Fe] 325 mg PO BID 05/07/18 [History] Gabapentin [Neurontin] 900 mg PO BEDTIME 05/07/18 [History] Insulin Aspart [NovoLOG] 40 units INJECT ASDIRECTED 05/07/18 [History] Insulin Glarg,Human.Rec.Analog [Lantus] 60 units INJECT BID 05/07/18 [History] Ranitidine [Zantac] 300 mg PO BEDTIME 05/07/18 [History] atorvaSTATin [Lipitor] 40 mg PO BEDTIME 05/07/18 [History] Furosemide 40 mg PO BID 10/02/18 [History] Metoprolol Succinate [Toprol XL] 25 mg PO DAILY 10/02/18 [History] Sacubitril/Valsartan [Entresto 97 mg-103 mg Tablet] 97 - 103 mg PO BID 10/02/18 [History] Past Medical History HEENT History: Reports: Impaired Vision Other HEENT History: wears glasses, beginning diabetic retinopathy Cardiovascular History: Reports: High Cholesterol, [place] Respiratory History: Reports: Sleep Apnea, Other (See Below) Other Respiratory History: Non recurrent Bronchitis and Pneumonia Gastrointestinal History: Reports: GERD, Hiatal Hernia Genitourinary History: Reports: UTI, Recurrent Other Genitourinary History: yeast infections 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: Laparoscopy and D&C, PCOS Musculoskeletal History: Reports: Arthritis, Fracture Other Musculoskeletal History: hx of fx right arm, right big toe fracture and surgery Neurological History: Reports: None Psychiatric History: Reports: Anxiety, PTSD Other Psychiatric History: refuses pre-op sedation for PTSD Endocrine/Metabolic History: Reports: Diabetes, Type II, Obesity/BMI 30+ Hematologic History: Reports: None Immunologic History: Reports: None Oncologic (Cancer) History: Reports: None Dermatologic History: Reports: Other (See Below) Other Dermatologic History: frequent scratching causing open sores - Infectious Disease History Infectious Disease History: Reports: Chicken Pox - Past Surgical History Head Surgeries/Procedures: Reports: None HEENT Surgical History: Reports: None Cardiovascular Surgical History: Reports: Coronary Artery Bypass Respiratory Surgical History: Reports: None GI Surgical History: Reports: Cholecystectomy, EGD Female Surgical History: Reports: Breast Reduction Endocrine Surgical History: Reports: None Neurological Surgical History: Reports: None Musculoskeletal Surgical History: Reports: Shoulder Replacement Oncologic Surgical History: Reports: None Dermatological Surgical History: Reports: None Social & Family History - Family History Family Medical History: Noncontributory - Caffeine Use Caffeine Use: Reports: Tea Caffeine Use Comment: "1 every couple of day" ED ROS GENERAL - Review of Systems Review Of Systems: See Below ED EXAM, DIZZINESS - Physical Exam Exam: See Below Course - Vital Signs Last Recorded V/S: Last Vital Signs Temp 96.7 F 10/02/18 07:51 Pulse 81 10/02/18 07:51 Resp 20 10/02/18 07:51 BP 119/67 10/02/18 07:51 Pulse Ox 98 10/02/18 07:51 - Orders/Labs/Meds Orders: Active Orders 24 hr Category Date Time Status Cardiac Monitoring [RC] . DIRECTED Care 10/02/18 07:55 Active EKG Documentation Completion [RC] STAT Care 10/02/18 07:55 Active Sodium Chloride 0.9% [Normal Saline] 1,000 ml Med 10/02/18 08:45 Active IV ASDIRECTED Sodium Chloride 0.9% [Normal Saline] 250 ml Med 10/02/18 08:45 Active IV STAT Sodium Chloride 0.9% [Saline Flush] Med 10/02/18 07:55 Active 10 ml FLUSH ASDIRECTED PRN Sodium Chloride 0.9% [Saline Flush] Med 10/02/18 07:55 Active 2.5 ml FLUSH ASDIRECTED PRN Saline Lock Insert [OM.PC] Stat Oth 10/02/18 07:55 Ordered Medication Orders Sodium Chloride (Normal Saline) 250 mls @ 999 mls/hr IV STAT BROWN Sodium Chloride (Normal Saline) 1,000 mls @ 125 mls/hr IV ASDIRECTED BROWN Last Admin: 10/02/18 08:41 Dose: 125 mls/hr Sodium Chloride (Saline Flush) 10 ml FLUSH ASDIRECTED PRN PRN Reason: Keep Vein Open Sodium Chloride (Saline Flush) 2.5 ml FLUSH ASDIRECTED PRN PRN Reason: Keep Vein Open Labs: Laboratory Tests 10/02/18 10/02/18 10/02/18 Range/Units 08:14 08:15 08:15 WBC 8.52 (4.0-11.0) K/uL RBC 4.31 (4.30-5.90) M/uL Hgb 12.8 (12.0-16.0) g/dL Hct 39.0 (36.0-46.0) % MCV 90.5 (80.0-98.0) fL MCH 29.7 (27.0-32.0) pg MCHC 32.8 (31.0-37.0) g/dL RDW Std Deviation 45.7 (28.0-62.0) fl RDW Coeff of Conor 14 (11.0-15.0) % Plt Count 261 (150-400) K/uL MPV 9.40 (7.40-12.00) fL Neut % (Auto) 66.2 (48.0-80.0) % Lymph % (Auto) 23.9 (16.0-40.0) % [place] % (Auto) 5.8 (0.0-15.0) % Eos % (Auto) 3.9 (0.0-7.0) % Baso % (Auto) 0.2 (0.0-1.5) % Neut # (Auto) 5.6 (1.4-5.7) K/uL Lymph # (Auto) 2.0 (0.6-2.4) K/uL [place] # (Auto) 0.5 (0.0-0.8) K/uL Eos # (Auto) 0.3 (0.0-0.7) K/uL Baso # (Auto) 0.0 (0.0-0.1) K/uL Nucleated RBC % 0.0 /100WBC Nucleated RBCs # 0 K/uL Sodium 138 (136-145) mmol/L Potassium 4.1 (3.5-5.1) mmol/L Chloride 101 (98-107) mmol/L Carbon Dioxide 30.3 (21.0-32.0) mmol/L BUN 31 H (7.0-18.0) mg/dL Creatinine 1.0 (0.6-1.0) mg/dL Est Cr Clr Drug Dosing TNP Estimated GFR (MDRD) 57.1 ml/min Glucose 243 H (74-106) mg/dL POC Glucose 237 H (60-110) mg/dL Calcium 9.0 (8.5-10.1) mg/dL Total Bilirubin 0.3 (0.2-1.0) mg/dL AST 13 L (15-37) IU/L ALT 22 (14-63) IU/L Alkaline Phosphatase 73 (46-116) U/L Troponin I < 0.050 (0.000-0.056) ng/mL B-Natriuretic Peptide (<100) PG/ML Total Protein 7.2 (6.4-8.2) g/dL Albumin 3.0 L (3.4-5.0) g/dL Globulin 4.2 H (2.6-4.0) g/dL Albumin/Globulin Ratio 0.7 L (0.9-1.6) 10/02/18 Range/Units 08:15 WBC (4.0-11.0) K/uL RBC (4.30-5.90) M/uL Hgb (12.0-16.0) g/dL Hct (36.0-46.0) % MCV (80.0-98.0) fL MCH (27.0-32.0) pg MCHC (31.0-37.0) g/dL RDW Std Deviation (28.0-62.0) fl RDW Coeff of Conor (11.0-15.0) % Plt Count (150-400) K/uL MPV (7.40-12.00) fL Neut % (Auto) (48.0-80.0) % Lymph % (Auto) (16.0-40.0) % [place] % (Auto) (0.0-15.0) % Eos % (Auto) (0.0-7.0) % Baso % (Auto) (0.0-1.5) % Neut # (Auto) (1.4-5.7) K/uL Lymph # (Auto) (0.6-2.4) K/uL [place] # (Auto) (0.0-0.8) K/uL Eos # (Auto) (0.0-0.7) K/uL Baso # (Auto) (0.0-0.1) K/uL Nucleated RBC % /100WBC Nucleated RBCs # K/uL Sodium (136-145) mmol/L Potassium (3.5-5.1) mmol/L Chloride (98-107) mmol/L Carbon Dioxide (21.0-32.0) mmol/L BUN (7.0-18.0) mg/dL Creatinine (0.6-1.0) mg/dL Est Cr Clr Drug Dosing Estimated GFR (MDRD) ml/min Glucose (74-106) mg/dL POC Glucose (60-110) mg/dL Calcium (8.5-10.1) mg/dL Total Bilirubin (0.2-1.0) mg/dL AST (15-37) IU/L ALT (14-63) IU/L Alkaline Phosphatase (46-116) U/L Troponin I (0.000-0.056) ng/mL B-Natriuretic Peptide 79 (<100) PG/ML Total Protein (6.4-8.2) g/dL Albumin (3.4-5.0) g/dL Globulin (2.6-4.0) g/dL Albumin/Globulin Ratio (0.9-1.6) Meds: Medications Generic Name Dose Route Start Last Admin Trade Name Freq PRN Reason Stop Dose Admin Sodium Chloride 250 mls @ 999 mls/hr 10/02/18 08:45 Normal Saline IV STAT BROWN Sodium Chloride 1,000 mls @ 125 mls/hr 10/02/18 08:45 10/02/18 08:41 Normal Saline IV 125 mls/hr ASDIRECTED BROWN Administration Sodium Chloride 10 ml 10/02/18 07:55 Saline Flush FLUSH ASDIRECTED PRN Keep Vein Open Sodium Chloride 2.5 ml 10/02/18 07:55 Saline Flush FLUSH ASDIRECTED PRN Keep Vein Open Discontinued Medications Generic Name Dose Route Start Last Admin Trade Name Freq PRN Reason Stop Dose Admin Meclizine HCl 25 mg 10/02/18 08:10 10/02/18 08:31 Antivert PO 10/02/18 08:11 25 mg ONETIME ONE Administration Ondansetron HCl 4 mg 10/02/18 08:10 10/02/18 08:24 Zofran Odt PO 10/02/18 08:11 Not Given ONETIME ONE Ondansetron HCl 4 mg 10/02/18 08:25 10/02/18 08:31 Zofran IVPUSH 10/02/18 08:26 4 mg ONETIME ONE Administration Departure - Departure Time of Disposition: 09:24 Disposition: Home, Self-Care 01 Condition: Good Clinical Impression: Hypotension - Discharge Information *PRESCRIPTION DRUG MONITORING PROGRAM REVIEWED*: No *COPY OF PRESCRIPTION DRUG MONITORING REPORT IN PATIENT VALENTÍN: No Referrals: PCP,None [Primary Care Provider] - Additional Instructions: The following information is given to patients seen in the emergency department who are being discharged to home. This information is to outline your options for follow-up care. We provide all patients seen in our emergency department with a follow-up referral. The need for follow-up, as well as the timing and circumstances, are variable depending upon the specifics of your emergency department visit. If you don't have a primary care physician on staff, we will provide you with a referral. We always advise you to contact your personal physician following an emergency department visit to inform them of the circumstance of the visit and for follow-up with them and/or the need for any referrals to a consulting specialist. The emergency department will also refer you to a specialist when appropriate. This referral assures that you have the opportunity for follow-up care with a specialist. All of these measure are taken in an effort to provide you with optimal care, which includes your follow-up. Under all circumstances we always encourage you to contact your private physician who remains a resource for coordinating your care. When calling for follow-up care, please make the office aware that this follow-up is from your recent emergency room visit. If for any reason you are refused follow-up, please contact the [facility] Emergency Department at and asked to speak to the emergency department charge nurse. Take meds as directed, follow up with your primary care physician, return to ER if symptoms worsen or change. [facility] [address] [place] [id number] - My Orders Last 24 Hours: My Active Orders 10/02/18 07:55 Cardiac Monitoring [RC] . DIRECTED EKG Documentation Completion [RC] STAT Sodium Chloride 0.9% [Saline Flush] 10 ml FLUSH ASDIRECTED PRN Sodium Chloride 0.9% [Saline Flush] 2.5 ml FLUSH ASDIRECTED PRN Saline Lock Insert [OM.PC] Stat 10/02/18 08:45 Sodium Chloride 0.9% [Normal Saline] 1,000 ml IV ASDIRECTED Sodium Chloride 0.9% [Normal Saline] 250 ml IV STAT - Assessment/Plan Last 24 Hours: My Active Orders 10/02/18 07:55 Cardiac Monitoring [RC] . DIRECTED EKG Documentation Completion [RC] STAT Sodium Chloride 0.9% [Saline Flush] 10 ml FLUSH ASDIRECTED PRN Sodium Chloride 0.9% [Saline Flush] 2.5 ml FLUSH ASDIRECTED PRN Saline Lock Insert [OM.PC] Stat 10/02/18 08:45 Sodium Chloride 0.9% [Normal Saline] 1,000 ml IV ASDIRECTED Sodium Chloride 0.9% [Normal Saline] 250 ml IV STAT
[2018-10-02] MEDS ORDERED: Ondansetron 4 MG Tab.DIS PO ONE (08:10)
[2018-10-02] MEDS ORDERED: Meclizine 25 MG Tab PO ONE (08:10)
[2018-10-02] MEDS ORDERED: Ondansetron 4 MG/2 ML SDV IVPUSH ONE (08:25)
[2018-10-02] MEDS ORDERED: Sodium Chloride 0.9% 250 ML IV SCH (08:45)
[2018-10-02] MEDS ORDERED: Sodium Chloride 0.9% 1,000 ML IV SCH (08:45)
[2018-10-02 09:06] LABS: CHLORIDE,CL 101 mmol/L (98-107); SODIUM,NA 138 mmol/L (136-145)
--- NOTE | 2018-10-02 09:12 | CR ---
EXAMINATION: Portable chest radiograph. HISTORY: Shortness of breath. FINDINGS: The trachea is midline. The cardiomediastinal silhouette is within normal limits. No pulmonary infiltrates, effusions or pneumothorax. Left-sided AICD is noted. Median sternotomy wires are present. Osseous structures appear osteopenic. IMPRESSION: No acute cardiopulmonary process.
[2018-10-02 09:40] VITALS: BP 126/72
== END 2018-10-02 09:30 | disposition home or self-care (01) ==
LOC: MW.ED 07:51
DX: I95.9 Hypotension, unspecified (principal); E78.00 Pure hypercholesterolemia, unspecified; I25.2 Old myocardial infarction; F41.9 Anxiety disorder, unspecified; F32.9 Major depressive disorder, single episode, unspecified; E66.9 Obesity, unspecified; Z88.1 Allergy status to other antibiotic agents; Z88.8 Allergy status to other drugs, medicaments and biological substances; Z91.013 Allergy to seafood; Z79.02 Long term (current) use of antithrombotics/antiplatelets; Z79.899 Other long term (current) drug therapy; Z79.4 Long term (current) use of insulin
CPT/HCPCS: 36415; 71045; 80053; 82962; 83880; 84484; 85025; 93005; 96361; 96374; 99285; A9270; J2405; J7040; 99283

== ENCOUNTER 2019-01-04 08:54 | Observation (INO) | payer OTHER ==
[2019-01-04] MEDS ORDERED: Sodium Chloride 0.9% 2.5 ML Syringe FLUSH PRN (09:23)
[2019-01-04] MEDS ORDERED: Sodium Chloride 0.9% 10 ML Syringe FLUSH PRN (09:23)
--- NOTE | 2019-01-04 09:27 | EDM.PDOC ---
ED HPI GENERAL MEDICAL PROBLEM - General Chief Complaint: Upper Extremity Injury/Pain Stated Complaint: RIGHT ARM NUMBNESS Time Seen by Provider: 01/04/19 09:18 - History of Present Illness INITIAL COMMENTS - FREE TEXT/NARRATIVE: HISTORY AND PHYSICAL: History of present illness: Patient is a 58-year-old white female with a cardiac history including pacemaker as well as congestive heart failure who presents with a concern of a one-day history of paresthesia to her right hand with some difficulty coordinating use of her right hand as illustrated by difficulty getting the altamirano into a lock per patient. Patient denies other numbness weakness denies chest pain shortness breath or other concern. Review of systems: As per history of present illness and below otherwise all systems reviewed and negative. Past medical history: As per history of present illness and as reviewed below otherwise noncontributory. Surgical history: As per history of present illness and as reviewed below otherwise noncontributory. Social history: No reported history of drug or alcohol abuse. Family history: As per history of present illness and as reviewed below otherwise noncontributory. Physical exam: HEENT: Atraumatic, normocephalic, pupils reactive, negative for conjunctival pallor or scleral icterus, mucous membranes moist, throat clear, neck supple, nontender, trachea midline. Lungs: Clear to auscultation, breath sounds equal bilaterally, chest nontender. Heart: S1S2, regular, negative for clicks, rubs, or JVD. Abdomen: Soft, nondistended, nontender. Negative for masses or hepatosplenomegaly. Negative for costovertebral tenderness. Pelvis: Stable nontender. Genitourinary: Deferred. Rectal: Deferred. Extremities: Atraumatic, negative for cords or calf pain. Neurovascular unremarkable. Neuro: Awake, alert, oriented. Cranial nerves II through XII unremarkable. Cerebellum unremarkable. Motor and sensory unremarkable throughout. Exam nonfocal. Diagnostics: CBC CMP troponin EKG PT/INR chest x-ray CT brain BNP Therapeutics: IV O2 monitor Impression: #1 paresthesia right upper extremity #2 history of CHF #3 history of pacemaker Definitive disposition and diagnosis as appropriate pending reevaluation and review of above. - Related Data Allergies Allergy/AdvReac Type Severity Reaction Status Date / Time amoxicillin Allergy Hives Verified 10/02/18 08:46 aspirin Allergy Hives Verified 10/02/18 08:46 Fish Containing Products Allergy Nausea and Verified 10/02/18 08:46 Vomiting ibuprofen Allergy Hives Verified 10/02/18 08:46 paroxetine [From Paxil] Allergy Other Verified 01/04/19 09:14 Home Meds: Home Meds Clopidogrel [Plavix] 75 mg PO DAILY 05/07/18 [History] Desvenlafaxine [Desvenlafaxine ER] 100 mg PO DAILY 05/07/18 [History] Ferrous Sulfate [Slow Fe] 325 mg PO BID 05/07/18 [History] Gabapentin [Neurontin] 900 mg PO BEDTIME 05/07/18 [History] Insulin Aspart [NovoLOG] 40 units INJECT ASDIRECTED 05/07/18 [History] Insulin Glarg,Human.Rec.Analog [Lantus] 60 units INJECT BID 05/07/18 [History] Ranitidine [Zantac] 300 mg PO BEDTIME 05/07/18 [History] atorvaSTATin [Lipitor] 40 mg PO BEDTIME 05/07/18 [History] Furosemide 40 mg PO BID 10/02/18 [History] Metoprolol Succinate [Toprol XL] 25 mg PO DAILY 10/02/18 [History] Sacubitril/Valsartan [Entresto 97 mg-103 mg Tablet] 97 - 103 mg PO BID 10/02/18 [History] Past Medical History HEENT History: Reports: Impaired Vision Other HEENT History: wears glasses, beginning diabetic retinopathy Cardiovascular History: Reports: High Cholesterol, [place] Respiratory History: Reports: Sleep Apnea, Other (See Below) Other Respiratory History: Non recurrent Bronchitis and Pneumonia Gastrointestinal History: Reports: GERD, Hiatal Hernia Genitourinary History: Reports: UTI, Recurrent Other Genitourinary History: yeast infections 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: Laparoscopy and D&C, PCOS Musculoskeletal History: Reports: Arthritis, Fracture Other Musculoskeletal History: hx of fx right arm, right big toe fracture and surgery Neurological History: Reports: None Psychiatric History: Reports: Anxiety, PTSD Other Psychiatric History: refuses pre-op sedation for PTSD Endocrine/Metabolic History: Reports: Diabetes, Type II, Obesity/BMI 30+ Hematologic History: Reports: None Immunologic History: Reports: None Oncologic (Cancer) History: Reports: None Dermatologic History: Reports: Other (See Below) Other Dermatologic History: frequent scratching causing open sores - Infectious Disease History Infectious Disease History: Reports: Chicken Pox - Past Surgical History Head Surgeries/Procedures: Reports: None HEENT Surgical History: Reports: None Cardiovascular Surgical History: Reports: Coronary Artery Bypass Respiratory Surgical History: Reports: None GI Surgical History: Reports: Cholecystectomy, EGD Female Surgical History: Reports: Breast Reduction Endocrine Surgical History: Reports: None Neurological Surgical History: Reports: None Musculoskeletal Surgical History: Reports: Shoulder Replacement Oncologic Surgical History: Reports: None Dermatological Surgical History: Reports: None Social & Family History - Family History Family Medical History: Noncontributory - Tobacco Use Smoking Status *Q: Never Smoker - Caffeine Use Caffeine Use: Reports: Tea Caffeine Use Comment: "1 every couple of day" - Recreational Drug Use Recreational Drug Use: No Review of Systems - Review of Systems Review Of Systems: ROS reveals no pertinent complaints other than HPI. ED EXAM, GENERAL - Physical Exam Exam: See Below (See dictation) Course - Vital Signs Last Recorded V/S: Last Vital Signs Temp 36.9 C 01/04/19 09:16 Pulse 77 01/04/19 09:16 Resp 16 01/04/19 09:16 BP 112/62 01/04/19 09:16 Pulse Ox 95 01/04/19 09:16 - Orders/Labs/Meds Orders: Active Orders 24 hr Category Date Time Status Cardiac Monitoring [RC] . DIRECTED Care 01/04/19 09:21 Active EKG Documentation Completion [RC] STAT Care 01/04/19 09:21 Active Oxygen Therapy, ED [RC] ASDIRECTED Care 01/04/19 09:21 Active Pulse Oximetry [RC] ASDIRECTED Care 01/04/19 09:21 Active B-TYPE NATRIURETIC PEPTIDE,BNP [CHEM] Stat Lab 01/04/19 09:45 Received Sodium Chloride 0.9% [Normal Saline] 1,000 ml Med 01/04/19 09:30 Active IV STAT Sodium Chloride 0.9% [Saline Flush] Med 01/04/19 09:23 Active 10 ml FLUSH ASDIRECTED PRN Sodium Chloride 0.9% [Saline Flush] Med 01/04/19 09:23 Active 2.5 ml FLUSH ASDIRECTED PRN Saline Lock Insert [OM.PC] Stat Oth 01/04/19 09:21 Ordered Medication Orders Sodium Chloride (Normal Saline) 1,000 mls @ 125 mls/hr IV STAT BROWN Last Admin: 01/04/19 10:35 Dose: 125 mls/hr Sodium Chloride (Saline Flush) 10 ml FLUSH ASDIRECTED PRN PRN Reason: Keep Vein Open Sodium Chloride (Saline Flush) 2.5 ml FLUSH ASDIRECTED PRN PRN Reason: Keep Vein Open Labs: Laboratory Tests 01/04/19 01/04/19 01/04/19 Range/Units 09:45 09:45 09:45 WBC 9.53 (4.0-11.0) K/uL RBC 4.57 (4.30-5.90) M/uL Hgb 13.4 (12.0-16.0) g/dL Hct 41.0 (36.0-46.0) % MCV 89.7 (80.0-98.0) fL MCH 29.3 (27.0-32.0) pg MCHC 32.7 (31.0-37.0) g/dL RDW Std Deviation 43.7 (28.0-62.0) fl RDW Coeff of Conor 13 (11.0-15.0) % Plt Count 274 (150-400) K/uL MPV 9.60 (7.40-12.00) fL Neut % (Auto) 67.6 (48.0-80.0) % Lymph % (Auto) 21.2 (16.0-40.0) % [place] % (Auto) 6.8 (0.0-15.0) % Eos % (Auto) 4.1 (0.0-7.0) % Baso % (Auto) 0.3 (0.0-1.5) % Neut # (Auto) 6.4 H (1.4-5.7) K/uL Lymph # (Auto) 2.0 (0.6-2.4) K/uL [place] # (Auto) 0.7 (0.0-0.8) K/uL Eos # (Auto) 0.4 (0.0-0.7) K/uL Baso # (Auto) 0.0 (0.0-0.1) K/uL Nucleated RBC % 0.0 /100WBC Nucleated RBCs # 0 K/uL INR 0.97 Sodium 139 (136-145) mmol/L Potassium 4.2 (3.5-5.1) mmol/L Chloride 101 (98-107) mmol/L Carbon Dioxide 26.6 (21.0-32.0) mmol/L BUN 24 H (7.0-18.0) mg/dL Creatinine 0.9 (0.6-1.0) mg/dL Est Cr Clr Drug Dosing 54.55 mL/min Estimated GFR (MDRD) > 60.0 ml/min Glucose 187 H (74-106) mg/dL Calcium 9.1 (8.5-10.1) mg/dL Total Bilirubin 0.4 (0.2-1.0) mg/dL AST 26 (15-37) IU/L ALT 30 (14-63) IU/L Alkaline Phosphatase 64 (46-116) U/L Troponin I < 0.050 (0.000-0.056) ng/mL Total Protein 7.7 (6.4-8.2) g/dL Albumin 3.2 L (3.4-5.0) g/dL Globulin 4.5 H (2.6-4.0) g/dL Albumin/Globulin Ratio 0.7 L (0.9-1.6) Meds: Medications Generic Name Dose Route Start Last Admin Trade Name Freq PRN Reason Stop Dose Admin Sodium Chloride 1,000 mls @ 125 mls/hr 01/04/19 09:30 01/04/19 10:35 Normal Saline IV 125 mls/hr STAT BROWN Administration Sodium Chloride 10 ml 01/04/19 09:23 Saline Flush FLUSH ASDIRECTED PRN Keep Vein Open Sodium Chloride 2.5 ml 01/04/19 09:23 Saline Flush FLUSH ASDIRECTED PRN Keep Vein Open Departure - Departure Time of Disposition: 10:51 Disposition: Refer to Observation Condition: Good Clinical Impression: Paresthesia, Diabetes - Discharge Information Referrals: Mónica Reyes DO [Primary Care Provider] - Forms: ED Department Discharge - My Orders Last 24 Hours: My Active Orders 01/04/19 09:21 Cardiac Monitoring [RC] . DIRECTED EKG Documentation Completion [RC] STAT Oxygen Therapy, ED [RC] ASDIRECTED Pulse Oximetry [RC] ASDIRECTED Saline Lock Insert [OM.PC] Stat 01/04/19 09:23 Sodium Chloride 0.9% [Saline Flush] 10 ml FLUSH ASDIRECTED PRN Sodium Chloride 0.9% [Saline Flush] 2.5 ml FLUSH ASDIRECTED PRN 01/04/19 09:30 Sodium Chloride 0.9% [Normal Saline] 1,000 ml IV STAT 01/04/19 09:45 B-TYPE NATRIURETIC PEPTIDE,BNP [CHEM] Stat - Assessment/Plan Last 24 Hours: My Active Orders 01/04/19 09:21 Cardiac Monitoring [RC] . DIRECTED EKG Documentation Completion [RC] STAT Oxygen Therapy, ED [RC] ASDIRECTED Pulse Oximetry [RC] ASDIRECTED Saline Lock Insert [OM.PC] Stat 01/04/19 09:23 Sodium Chloride 0.9% [Saline Flush] 10 ml FLUSH ASDIRECTED PRN Sodium Chloride 0.9% [Saline Flush] 2.5 ml FLUSH ASDIRECTED PRN 01/04/19 09:30 Sodium Chloride 0.9% [Normal Saline] 1,000 ml IV STAT 01/04/19 09:45 B-TYPE NATRIURETIC PEPTIDE,BNP [CHEM] Stat
[2019-01-04] MEDS ORDERED: Sodium Chloride 0.9% 1,000 ML IV SCH (09:30)
--- NOTE | 2019-01-04 09:51 | CT ---
INDICATION: Pt for possible stroke. INDICATION: Stroke protocol. Weakness. TECHNIQUE: CT head without contrast. COMPARISON: None FINDINGS: CSF spaces: Within normal limits for age. Brain parenchyma: There are chronic appearing infarcts in the head of the right caudate nucleus, and right internal capsule. No hyperdense MCA sign. The basilar artery appears hyperdense, image 15, series 201. Skull base and calvarium: The visualized paranasal sinuses and mastoid air cells are clear. The visualized orbits are grossly unremarkable. No skull fractures. IMPRESSION: 1. There is no acute intracranial hemorrhage, shift of midline structures, or mass effect. 2. No hyperdense MCA sign. The basilar artery appears hyperdense, which could be artifactual. This is seen on image 15, series 201. If there is concern regarding basilar artery occlusion, CTA may be obtained. Per my discussion with Dr. Lira, ED, 01/04/2019, 0945 hours, there is no clinical evidence for basilar artery occlusion. 3. Lacunar infarcts in the head of the right caudate nucleus, and right internal capsule. Dictated by Oleg Swanson MD @ 01/04/2019 9:48:46 AM Please note that all CT scans at this facility use dose modulation, iterative reconstruction, and/or weight-based dosing when appropriate to reduce radiation dose to as low as reasonably achievable. Dictated by: Oleg Swanson MD @ 01/04/2019 09:48:53 (Electronically Signed)
--- NOTE | 2019-01-04 10:09 | CR ---
INDICATION: Chest pain; shortness of breath. COMPARISON: portable chest radiograph October 02, 2018. TECHNIQUE: Portable AP chest. FINDINGS: Normal size cardiac silhouette. Implanted cardiac defibrillator in place. Status post median sternotomy. Left shoulder arthroplasty. No acute pneumonic infiltrates or CHF. No pneumothorax or pleural effusion. Impression : 1. No interval change. 2. No acute pathology. Dictated by Dion Dorantes MD @ Jan 04 2019 10:06AM Signed by Dr. Dion Dorantes @ Jan 04 2019 10:08AM
[2019-01-04 10:39] LABS: BLOOD UREA NITROGEN,BUN 24 mg/dL (7.0-18.0); CARBON DIOXIDE,CO2 26.6 mmol/L (21.0-32.0); CHLORIDE,CL 101 mmol/L (98-107); GLUCOSE RANDOM 187 mg/dL (74-106); POTASSIUM,K 4.2 mmol/L (3.5-5.1); SODIUM,NA 139 mmol/L (136-145)
--- NOTE | 2019-01-04 14:22 | PCM.HP.2 ---
H&P History of Present Illness - General Date of Service: 01/04/19 Admit Problem/Dx: Admission Diagnosis/Problem Admission Diagnosis/Problem Paresthesia - History of Present Illness Initial Comments - Free Text/Narative: 58 yo female with pmh of DM, CHF, CAD, s/p CABG and pacemaker who presents with one day history of right hand weakness. Patient noted that she had difficulty grasping objects and had a hard time starting her car with her keys. She reports the weakness and numbness involves all fingers but more so her lateral fingers. She denies any other neurological symptoms. She does get steroid injections into her right shoulder with last one a month ago. She has a history of an injury to her left shoulder with limited mobility - Related Data Allergies/Adverse Reactions: Allergies Allergy/AdvReac Type Severity Reaction Status Date / Time ibuprofen Allergy Severe Hives Verified 01/04/19 12:43 paroxetine [From Paxil] Allergy Mild Other Verified 01/04/19 12:43 amoxicillin Allergy Hives Verified 01/04/19 12:43 aspirin Allergy Hives Verified 01/04/19 12:43 Fish Containing Products Allergy Nausea and Verified 01/04/19 12:43 Vomiting Home Medications: Home Meds Clopidogrel [Plavix] 75 mg PO DAILY 05/07/18 [History] Desvenlafaxine [Desvenlafaxine ER] 100 mg PO DAILY 05/07/18 [History] Ferrous Sulfate [Slow Fe] 325 mg PO BID 05/07/18 [History] Insulin Aspart [NovoLOG] 40 units INJECT ASDIRECTED 05/07/18 [History] Insulin Glarg,Human.Rec.Analog [Lantus] 60 units INJECT BID 05/07/18 [History] atorvaSTATin [Lipitor] 40 mg PO BEDTIME 05/07/18 [History] Metoprolol Succinate [Toprol XL] 25 mg PO DAILY 10/02/18 [History] Sacubitril/Valsartan [Entresto 97 mg-103 mg Tablet] 97 - 103 mg PO BID 10/02/18 [History] Bumetanide 2 mg PO BID@0630,15 01/04/19 [History] Melatonin 10 mg PO BEDTIME 01/04/19 [History] Past Medical History HEENT History: Reports: Impaired Vision Other HEENT History: wears glasses, beginning diabetic retinopathy Cardiovascular History: Reports: High Cholesterol, [place], Pacemaker Respiratory History: Reports: Sleep Apnea, Other (See Below) Other Respiratory History: Non recurrent Bronchitis and Pneumonia Gastrointestinal History: Reports: GERD, Hiatal Hernia Genitourinary History: Reports: UTI, Recurrent Other Genitourinary History: yeast infections 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 hx of broken patellas bilateral Neurological History: Reports: None Psychiatric History: Reports: Anxiety, Depression, PTSD Other Psychiatric History: refuses pre-op sedation for PTSD Endocrine/Metabolic History: Reports: Diabetes, Type II, Obesity/BMI 30+ Hematologic History: Reports: None Immunologic History: Reports: None Oncologic (Cancer) History: Reports: None Dermatologic History: Reports: Other (See Below) Other Dermatologic History: frequent scratching causing open sores - Infectious Disease History Infectious Disease History: Reports: Chicken Pox, Measles Other Infectious Disease History: chickenpox in childhood - Past Surgical History Head Surgeries/Procedures: Reports: None HEENT Surgical History: Reports: None Cardiovascular Surgical History: Reports: Coronary Artery Bypass Respiratory Surgical History: Reports: None GI Surgical History: Reports: Cholecystectomy, EGD Female Surgical History: Reports: Breast Reduction Endocrine Surgical History: Reports: None Neurological Surgical History: Reports: None Musculoskeletal Surgical History: Reports: Shoulder Replacement Oncologic Surgical History: Reports: None Dermatological Surgical History: Reports: None Social & Family History - Family History Family Medical History: Noncontributory HEENT: Reports: None Cardiac: Reports: CAD, Hypertension Respiratory: Reports: COPD GI: Reports: GERD : Reports: Diabetic Nephropathy Musculoskeletal: Reports: Arthritis, Osteoporosis Neurological: Reports: Alzheimers Disease Psychiatric: Reports: Anxiety, Bipolar, Depression Endocrine/Metabolic: Reports: Hyperthyroidism Dermatologic: Reports: Psoriasis Oncologic: Reports: Brain, Lung - Tobacco Use Smoking Status *Q: Never Smoker Second Hand Smoke Exposure: No - Caffeine Use Caffeine Use: Reports: Tea Caffeine Use Comment: a cup of tea a day - Recreational Drug Use Recreational Drug Use: No H&P Review of Systems - Review of Systems: Review Of Systems: ROS reveals no pertinent complaints other than HPI. Exam - Exam Exam: See Below - Vital Signs Vital Signs: Last Vital Signs Temp 36.0 C 01/04/19 12:50 Pulse 82 01/04/19 12:50 Resp 18 01/04/19 12:50 BP 96/65 01/04/19 12:50 Pulse Ox 97 01/04/19 12:50 Weight: 124.3 kg - Exam General: Alert, Oriented HEENT: Mucosa Moist & [place] Lungs: Clear to Auscultation, Normal Respiratory Effort Cardiovascular: Regular Rate, Regular Rhythm GI/Abdominal Exam: Soft, Non-Tender Extremities: Non-Tender, No Pedal Edema Skin: Warm, Dry, Intact Neurological: Cranial Nerves Intact, Strength Equal Bilateral, Normal Gait, Normal Speech, Normal Tone, Sensation Intact. No: Focal Deficit - Patient Data Lab Results Last 24 hrs: Laboratory Results - last 24 hr 01/04/19 01/04/19 01/04/19 Range/Units 09:45 09:45 09:45 WBC 9.53 (4.0-11.0) K/uL RBC 4.57 (4.30-5.90) M/uL Hgb 13.4 (12.0-16.0) g/dL Hct 41.0 (36.0-46.0) % MCV 89.7 (80.0-98.0) fL MCH 29.3 (27.0-32.0) pg MCHC 32.7 (31.0-37.0) g/dL RDW Std Deviation 43.7 (28.0-62.0) fl RDW Coeff of Conor 13 (11.0-15.0) % Plt Count 274 (150-400) K/uL MPV 9.60 (7.40-12.00) fL Neut % (Auto) 67.6 (48.0-80.0) % Lymph % (Auto) 21.2 (16.0-40.0) % [place] % (Auto) 6.8 (0.0-15.0) % Eos % (Auto) 4.1 (0.0-7.0) % Baso % (Auto) 0.3 (0.0-1.5) % Neut # (Auto) 6.4 H (1.4-5.7) K/uL Lymph # (Auto) 2.0 (0.6-2.4) K/uL [place]ron # (Auto) 0.7 (0.0-0.8) K/uL Eos # (Auto) 0.4 (0.0-0.7) K/uL Baso # (Auto) 0.0 (0.0-0.1) K/uL Nucleated RBC % 0.0 /100WBC Nucleated RBCs # 0 K/uL INR 0.97 Sodium 139 (136-145) mmol/L Potassium 4.2 (3.5-5.1) mmol/L Chloride 101 (98-107) mmol/L Carbon Dioxide 26.6 (21.0-32.0) mmol/L BUN 24 H (7.0-18.0) mg/dL Creatinine 0.9 (0.6-1.0) mg/dL Est Cr Clr Drug Dosing 54.55 mL/min Estimated GFR (MDRD) > 60.0 ml/min Glucose 187 H (74-106) mg/dL Calcium 9.1 (8.5-10.1) mg/dL Total Bilirubin 0.4 (0.2-1.0) mg/dL AST 26 (15-37) IU/L ALT 30 (14-63) IU/L Alkaline Phosphatase 64 (46-116) U/L Troponin I < 0.050 (0.000-0.056) ng/mL B-Natriuretic Peptide (<100) PG/ML Total Protein 7.7 (6.4-8.2) g/dL Albumin 3.2 L (3.4-5.0) g/dL Globulin 4.5 H (2.6-4.0) g/dL Albumin/Globulin Ratio 0.7 L (0.9-1.6) 01/04/19 Range/Units 09:45 WBC (4.0-11.0) K/uL RBC (4.30-5.90) M/uL Hgb (12.0-16.0) g/dL Hct (36.0-46.0) % MCV (80.0-98.0) fL MCH (27.0-32.0) pg MCHC (31.0-37.0) g/dL RDW Std Deviation (28.0-62.0) fl RDW Coeff of Conor (11.0-15.0) % Plt Count (150-400) K/uL MPV (7.40-12.00) fL Neut % (Auto) (48.0-80.0) % Lymph % (Auto) (16.0-40.0) % Barron % (Auto) (0.0-15.0) % Eos % (Auto) (0.0-7.0) % Baso % (Auto) (0.0-1.5) % Neut # (Auto) (1.4-5.7) K/uL Lymph # (Auto) (0.6-2.4) K/uL [place]ron # (Auto) (0.0-0.8) K/uL Eos # (Auto) (0.0-0.7) K/uL Baso # (Auto) (0.0-0.1) K/uL Nucleated RBC % /100WBC Nucleated RBCs # K/uL INR Sodium (136-145) mmol/L Potassium (3.5-5.1) mmol/L Chloride (98-107) mmol/L Carbon Dioxide (21.0-32.0) mmol/L BUN (7.0-18.0) mg/dL Creatinine (0.6-1.0) mg/dL Est Cr Clr Drug Dosing mL/min Estimated GFR (MDRD) ml/min Glucose (74-106) mg/dL Calcium (8.5-10.1) mg/dL Total Bilirubin (0.2-1.0) mg/dL AST (15-37) IU/L ALT (14-63) IU/L Alkaline Phosphatase (46-116) U/L Troponin I (0.000-0.056) ng/mL B-Natriuretic Peptide 85 (<100) PG/ML Total Protein (6.4-8.2) g/dL Albumin (3.4-5.0) g/dL Globulin (2.6-4.0) g/dL Albumin/Globulin Ratio (0.9-1.6) Result Diagrams: 01/04/19 09:45 01/04/19 09:45 Problem List Initiated/Reviewed/Updated: Yes Orders Last 24hrs: Active Orders 24 hr Category Date Time Status Patient Status [ADT] Stat ADT 01/04/19 10:52 Active Cardiac Monitoring [RC] . DIRECTED Care 01/04/19 09:21 Active EKG Documentation Completion [RC] STAT Care 01/04/19 09:21 Active Pulse Oximetry [RC] ASDIRECTED Care 01/04/19 09:21 Active Echo 2D wo Cont [US] Routine Exams 01/04/19 14:16 Ordered GLYCOSYLATED HEMOGLOBIN,HGBA1C [CHEM] Routine Lab 01/04/19 14:14 Received Bumetanide [Bumetanide] Med 01/04/19 15:00 Ordered 2 mg PO BID@0630,15 Clopidogrel [Plavix] Med 01/05/19 09:00 Ordered 75 mg PO DAILY Insulin Aspart [NovoLOG] Med 01/04/19 17:00 Ordered See Protocol SUBCUT TIDAC Insulin Glarg,Human.Rec.Analog Med 01/04/19 21:00 Ordered 60 units INJECT BID Sodium Chloride 0.9% [Normal Saline] 1,000 ml Med 01/04/19 09:30 Active IV STAT Sodium Chloride 0.9% [Saline Flush] Med 01/04/19 09:23 Active 10 ml FLUSH ASDIRECTED PRN Sodium Chloride 0.9% [Saline Flush] Med 01/04/19 09:23 Active 2.5 ml FLUSH ASDIRECTED PRN atorvaSTATin [Lipitor] Med 01/04/19 21:00 Ordered 40 mg PO BEDTIME Saline Lock Insert [OM.PC] Stat Oth 01/04/19 09:21 Ordered Medication Orders Atorvastatin Calcium (Lipitor) 40 mg PO BEDTIME BROWN Clopidogrel Bisulfate (Plavix) 75 mg PO DAILY BROWN Sodium Chloride (Normal Saline) 1,000 mls @ 125 mls/hr IV STAT BROWN Last Admin: 01/04/19 10:35 Dose: 125 mls/hr Insulin Aspart (Novolog) 0 unit SUBCUT TIDAC BROWN; Protocol Non-Formulary Medication (Bumetanide [Bumetanide]) 2 mg PO BID@0630,15 BROWN Non-Formulary Medication (Insulin Glarg,Human.Rec.Analog) 60 units INJECT BID BROWN Sodium Chloride (Saline Flush) 10 ml FLUSH ASDIRECTED PRN PRN Reason: Keep Vein Open Sodium Chloride (Saline Flush) 2.5 ml FLUSH ASDIRECTED PRN PRN Reason: Keep Vein Open Assessment/Plan Comment:: 58 yo female with right hand paresthesias. Unable to get MRI of brain due to history of pacemaker. We will monitor on telemetry overnight and order echocardiogram.
[2019-01-04] MEDS: Bumetanide 1 MG Tab PO SCH (14:50)
[2019-01-04 15:16] LABS: HEMOGLOBIN A1C 12.5 % (4.5-6.2)
[2019-01-04] MEDS: Insulin Aspart 100 Units/ML 3 ML Pen SUBCUT SCH (17:05)
[2019-01-04] MEDS ORDERED: atorvaSTATin 40 MG Tab PO SCH (21:00)
[2019-01-04] MEDS: Insulin Glargine,Human Rec. Analog 100 Units/ML 3 ML Pen SUBCUT SCH (21:23)
[2019-01-04] MEDS ORDERED: Calcium Carbonate 500 MG Tab.Chew PO PRN (22:48)
[2019-01-05] MEDS: Bumetanide 1 MG Tab PO SCH (06:58)
[2019-01-05] MEDS: Insulin Aspart 100 Units/ML 3 ML Pen SUBCUT SCH (06:58)
[2019-01-05 07:57] VITALS: BP 112/61; PULSE 94
[2019-01-05] MEDS ORDERED: Clopidogrel 75 MG Tab PO SCH (09:00)
[2019-01-05] MEDS: Insulin Glargine,Human Rec. Analog 100 Units/ML 3 ML Pen SUBCUT SCH (10:13)
--- NOTE | 2019-01-05 12:26 | PCM.DCSUM1 ---
Discharge Summary - Discharge Data Discharge Date: 01/05/19 Discharge Disposition: Home, Self-Care 01 Condition: Good - Referral to Home Health Primary Care Physician: Mónica Reyes DO - Patient Summary/Data Hospital Course: 58 yo female with pmh of DM, CHF, CAD, s/p CABG and pacemaker who was admitted due to concerns of TIA. She presented with one day history of right hand weakness and numbness. CT head show no acute intracranial hemorrhage, lacunar infarcts in the head of the right caudate nucleus and right internal capsule. We were unable to do MRI due to history of pacemaker. PAtient was monitored overnight on telemetry without events. This morning she reports minimal weakness in her hand and is wanting to be discharged home. Echocardiogram and carotid Doppler were performed but reports are pending at time of discharge. She is to follow up with Dr. Cameron. Patient also has follow up with development educator as HgA1c was 12 but patient admits to poor compliance with diabetic diet and regiment. - Discharge Plan Home Medications: Home Meds Clopidogrel [Plavix] 75 mg PO DAILY 05/07/18 [History] Desvenlafaxine [Desvenlafaxine ER] 100 mg PO DAILY 05/07/18 [History] Ferrous Sulfate [Slow Fe] 325 mg PO BID 05/07/18 [History] Insulin Aspart [NovoLOG] 40 units INJECT ASDIRECTED 05/07/18 [History] Insulin Glarg,Human.Rec.Analog [Lantus] 60 units INJECT BID 05/07/18 [History] atorvaSTATin [Lipitor] 40 mg PO BEDTIME 05/07/18 [History] Metoprolol Succinate [Toprol XL] 25 mg PO DAILY 10/02/18 [History] Sacubitril/Valsartan [Entresto 97 mg-103 mg Tablet] 97 - 103 mg PO BID 10/02/18 [History] Bumetanide 2 mg PO BID@0630,15 01/04/19 [History] Melatonin 10 mg PO BEDTIME 01/04/19 [History] Patient Handouts: Paresthesia, [id number], Diabetes Mellitus and Nutrition, Adult Referrals: [facility] [Outside] Mónica Reyes DO [Primary Care Provider] - 01/12/19 9:45 am - Discharge Summary/Plan Comment DC Time >30 min.: No - Patient Data Vitals - Most Recent: Last Vital Signs Temp 36.9 C 01/05/19 07:56 Pulse 94 01/05/19 07:56 Resp 14 01/05/19 07:56 BP 112/61 01/05/19 07:56 Pulse Ox 95 01/05/19 07:56 Weight - Most Recent: 124.3 kg I&O - Last 24 hours: Intake & Output 01/04/19 01/05/19 01/05/19 22:59 06:59 14:59 Intake Total 720 370 Output Total 600 1400 Balance 120 -1030 Lab Results - Last 24 hrs: Laboratory Results - last 24 hr 01/04/19 01/04/19 01/04/19 Range/Units 14:14 16:31 20:31 POC Glucose 137 H 191 H (60-110) mg/dL Hemoglobin A1c 12.5 H (4.5-6.2) % 01/05/19 01/05/19 Range/Units 06:34 11:56 POC Glucose 182 H 183 H (60-110) mg/dL Hemoglobin A1c (4.5-6.2) % Med Orders - Current: Current Medications Atorvastatin Calcium (Lipitor) 40 mg PO BEDTIME [facility] Last Admin: 01/04/19 21:23 Dose: 40 mg Bumetanide (Bumex) 2 mg PO BID@0630,15 [facility] Last Admin: 01/05/19 06:58 Dose: 2 mg Calcium Carbonate/Glycine (Tums) 1,000 mg PO TID PRN PRN Reason: Indigestion Last Admin: 01/04/19 23:17 Dose: 1,000 mg Clopidogrel Bisulfate (Plavix) 75 mg PO DAILY [facility] Last Admin: 01/05/19 08:51 Dose: 75 mg Insulin Aspart (Novolog) 0 unit SUBCUT TIDAC [facility]; Protocol Last Admin: 01/05/19 06:58 Dose: 3 units Insulin Glargine (Lantus Solostar) 60 units SUBCUT BID [facility] Last Admin: 01/05/19 10:13 Dose: 60 units Sodium Chloride (Saline Flush) 10 ml FLUSH ASDIRECTED PRN PRN Reason: Keep Vein Open Sodium Chloride (Saline Flush) 2.5 ml FLUSH ASDIRECTED PRN PRN Reason: Keep Vein Open Discontinued Medications Sodium Chloride (Normal Saline) 1,000 mls @ 125 mls/hr IV STAT BROWN Last Admin: 01/04/19 10:35 Dose: 125 mls/hr
--- NOTE | 2019-01-05 12:37 | US ---
Carotid ultrasound: Multiple real-time images were obtained. Plaque: Fair amount of plaque noted within the right internal carotid artery. Comparison: No prior carotid imaging is available. Findings: Velocity measurements: Right side: CCA has a peak systolic velocity of 0.65 m/s. ICA has a peak systolic velocity of 0.87 m/s and peak end-diastolic velocity of 0.35 m/s. ECA has a peak systolic velocity of 1.53 m/s. Vertebral artery has a peak systolic velocity of 0.69 m/s. ICA/CCA ratio is 1.3. Left side: CCA has a peak systolic velocity of 0.85 m/s. ICA has a peak systolic velocity of 0.78 m/s and peak end-diastolic velocity of 0.33 m/s. ECA has a peak systolic velocity of 0.93 m/s. Vertebral artery has a peak systolic velocity of 0.75 m/s. ICA/CCA ratio is 1.19. Impression: 1. Fair amount of plaque within the right internal carotid artery. 2. Velocity measurements within both internal carotid arteries correspond to stenosis in the range 1% to 49%. Diagnostic code #2 MTDD
--- NOTE | 2019-01-05 17:10 | ECHO ---
The echocardiogram report can be seen in this patient's EMR (Electronic Medical Record) in the REPORTS section. The echocardiogram report has also been scanned into PACS and can be seen there as well. JONATHAN
== END 2019-01-05 12:45 | disposition home or self-care (01) ==
LOC: MW.ED 08:54 → MW.MS 10:52
PROVIDERS: ADMIT Internal Medicine; ATTEND Internal Medicine
DX: R20.2 Paresthesia of skin (principal); E11.9 Type 2 diabetes mellitus without complications; I50.9 Heart failure, unspecified; I25.10 Atherosclerotic heart disease of native coronary artery without angina pectoris; E78.00 Pure hypercholesterolemia, unspecified; K21.9 Gastro-esophageal reflux disease without esophagitis; M19.90 Unspecified osteoarthritis, unspecified site; F41.9 Anxiety disorder, unspecified; F32.9 Major depressive disorder, single episode, unspecified; Z95.1 Presence of aortocoronary bypass graft; Z95.0 Presence of cardiac pacemaker; Z88.6 Allergy status to analgesic agent; Z88.8 Allergy status to other drugs, medicaments and biological substances; Z88.0 Allergy status to penicillin; Z91.013 Allergy to seafood; Z79.02 Long term (current) use of antithrombotics/antiplatelets; Z79.899 Other long term (current) drug therapy; Z79.4 Long term (current) use of insulin
CPT/HCPCS: 36415; 70450; 71045; 80053; 82962; 83036; 83880; 84484; 85025; 85610; 93005; 93306; 93880; 96360; 96361; 99285; A9270; G0378; J1815; J7040; 99284

== ENCOUNTER 2019-02-27 16:44 | Emergency (ER) | payer OTHER ==
--- NOTE | 2019-02-27 16:56 | EDM.PDOC ---
ED HPI GENERAL MEDICAL PROBLEM - General Chief Complaint: Trauma Stated Complaint: PT FELL Time Seen by Provider: 02/27/19 16:48 - History of Present Illness INITIAL COMMENTS - FREE TEXT/NARRATIVE: HISTORY AND PHYSICAL: History of present illness: Patient is a 58-year-old female presents status post fall which she injured her left knee she denies any head or neck pain or trauma or any other concern. Review of systems: As per history of present illness and below otherwise all systems reviewed and negative. Past medical history: As per history of present illness and as reviewed below otherwise noncontributory. Surgical history: As per history of present illness and as reviewed below otherwise noncontributory. Social history: No reported history of drug or alcohol abuse. Family history: As per history of present illness and as reviewed below otherwise noncontributory. Physical exam: HEENT: Atraumatic, normocephalic, pupils reactive, negative for conjunctival pallor or scleral icterus, mucous membranes moist, throat clear, neck supple, nontender, trachea midline. Lungs: Clear to auscultation, breath sounds equal bilaterally, chest nontender. Heart: S1S2, regular, negative for clicks, rubs, or JVD. Abdomen: Soft, nondistended, nontender. Negative for masses or hepatosplenomegaly. Negative for costovertebral tenderness. Pelvis: Stable nontender. Genitourinary: Deferred. Rectal: Deferred. Extremities: Left knee has no point tenderness joints grossly stable is no gross effusion CMS neurovascular exam is unremarkable Neuro: Awake, alert, oriented. Cranial nerves II through XII unremarkable. Cerebellum unremarkable. Motor and sensory unremarkable throughout. Exam nonfocal. Diagnostics: X-ray left knee CT head declined by patient Therapeutics: Knee immobilizer/crutches Impression: 1 left knee injury Definitive disposition and diagnosis as appropriate pending reevaluation and review of above. - Related Data Allergies Allergy/AdvReac Type Severity Reaction Status Date / Time ibuprofen Allergy Severe Hives Verified 01/04/19 12:43 paroxetine [From Paxil] Allergy Mild Other Verified 01/04/19 12:43 amoxicillin Allergy Hives Verified 01/04/19 12:43 aspirin Allergy Hives Verified 01/04/19 12:43 Fish Containing Products Allergy Nausea and Verified 01/04/19 12:43 Vomiting Home Meds: Home Meds Clopidogrel [Plavix] 75 mg PO DAILY 05/07/18 [History] Desvenlafaxine [Desvenlafaxine ER] 100 mg PO DAILY 05/07/18 [History] Ferrous Sulfate [Slow Fe] 325 mg PO BID 05/07/18 [History] Insulin Aspart [NovoLOG] 40 units INJECT ASDIRECTED 05/07/18 [History] Insulin Glarg,Human.Rec.Analog [Lantus] 60 units INJECT BID 05/07/18 [History] atorvaSTATin [Lipitor] 40 mg PO BEDTIME 05/07/18 [History] Metoprolol Succinate [Toprol XL] 25 mg PO DAILY 10/02/18 [History] Sacubitril/Valsartan [Entresto 97 mg-103 mg Tablet] 97 - 103 mg PO BID 10/02/18 [History] Bumetanide 2 mg PO BID@0630,15 01/04/19 [History] Melatonin 10 mg PO BEDTIME 01/04/19 [History] Past Medical History HEENT History: Reports: Impaired Vision Other HEENT History: wears glasses, beginning diabetic retinopathy Cardiovascular History: Reports: High Cholesterol, [place], Pacemaker Respiratory History: Reports: Sleep Apnea, Other (See Below) Other Respiratory History: Non recurrent Bronchitis and Pneumonia Gastrointestinal History: Reports: GERD, Hiatal Hernia Genitourinary History: Reports: UTI, Recurrent Other Genitourinary History: yeast infections MULE DEVELOPER History: Reports: Other MULE DEVELOPER History: 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 hx of broken patellas bilateral Neurological History: Reports: None Psychiatric History: Reports: Anxiety, Depression, PTSD Other Psychiatric History: refuses pre-op sedation for PTSD Endocrine/Metabolic History: Reports: Diabetes, Type II, Obesity/BMI 30+ Hematologic History: Reports: None Immunologic History: Reports: None Oncologic (Cancer) History: Reports: None Dermatologic History: Reports: Other (See Below) Other Dermatologic History: frequent scratching causing open sores - Infectious Disease History Infectious Disease History: Reports: Chicken Pox, Measles Other Infectious Disease History: chickenpox in childhood - Past Surgical History Head Surgeries/Procedures: Reports: None HEENT Surgical History: Reports: None Cardiovascular Surgical History: Reports: Coronary Artery Bypass Respiratory Surgical History: Reports: None GI Surgical History: Reports: Cholecystectomy, EGD Female Surgical History: Reports: Breast Reduction Endocrine Surgical History: Reports: None Neurological Surgical History: Reports: None Musculoskeletal Surgical History: Reports: Shoulder Replacement Oncologic Surgical History: Reports: None Dermatological Surgical History: Reports: None Social & Family History - Family History Family Medical History: Noncontributory HEENT: Reports: None Cardiac: Reports: CAD, Hypertension Respiratory: Reports: COPD GI: Reports: GERD : Reports: Diabetic Nephropathy Musculoskeletal: Reports: Arthritis, Osteoporosis Neurological: Reports: Alzheimers Disease Psychiatric: Reports: Anxiety, Bipolar, Depression Endocrine/Metabolic: Reports: Hyperthyroidism Dermatologic: Reports: Psoriasis Oncologic: Reports: Brain, Lung - Caffeine Use Caffeine Use: Reports: Tea Caffeine Use Comment: a cup of tea a day Review of Systems - Review of Systems Review Of Systems: Comprehensive ROS is negative, except as noted in HPI. ED EXAM, GENERAL - Physical Exam Exam: See Below (Dictation) Course - Orders/Labs/Meds Orders: Active Orders 24 hr Category Date Time Status Knee 3V Lt [CR] Stat Exams 02/27/19 16:51 Ordered Departure - Departure Time of Disposition: 16:56 Disposition: Home, Self-Care 01 Condition: Good Clinical Impression: Knee injury - Discharge Information Additional Instructions: The following information is given to patients seen in the emergency department who are being discharged to home. This information is to outline your options for follow-up care. We provide all patients seen in our emergency department with a follow-up referral. The need for follow-up, as well as the timing and circumstances, are variable depending upon the specifics of your emergency department visit. If you don't have a primary care physician on staff, we will provide you with a referral. We always advise you to contact your personal physician following an emergency department visit to inform them of the circumstance of the visit and for follow-up with them and/or the need for any referrals to a consulting specialist. The emergency department will also refer you to a specialist when appropriate. This referral assures that you have the opportunity for followup care with a specialist. All of these measure are taken in an effort to provide you with optimal care, which includes your followup. Under all circumstances we always encourage you to contact your private physician who remains a resource for coordinating your care. When calling for followup care, please make the office aware that this follow-up is from your recent emergency room visit. If for any reason you are refused follow-up, please contact the [facility] emergency department at and asked to speak to the emergency department charge nurse. LEANN [facility] [address], [address] [place] [address] The immobilizer crutches as directed Tylenol as directed follow-up orthopedic surgery above return as needed as discussed - My Orders Last 24 Hours: My Active Orders 02/27/19 16:51 Knee 3V Lt [CR] Stat - Assessment/Plan Last 24 Hours: My Active Orders 02/27/19 16:51 Knee 3V Lt [CR] Stat
--- NOTE | 2019-02-27 17:36 | CR ---
INDICATION: Pain after fall COMPARISON: None available. FINDINGS: The left knee was examined using portable technique at 1651 hours with AP, lateral, and sunrise views for a total of three views. There is no sign of fracture or dislocation. The medial and lateral compartments are normal in height. There is no sign of a joint effusion. Incidental note is made of an osteochondroma projecting from the lateral aspect of the lateral femoral condyle, of no clinical concern. No soft tissue abnormality is seen. IMPRESSION: Normal left knee. Dictated by Dale Chi MD @ Feb 27 2019 5:32PM Signed by Dr. Dale Chi @ Feb 27 2019 5:34PM
[2019-02-27 19:06] VITALS: BP 130/76; PULSE 86
== END 2019-02-27 18:21 | disposition home or self-care (01) ==
LOC: MW.ED 16:44
DX: S89.92XA Unspecified injury of left lower leg, initial encounter (principal); E78.00 Pure hypercholesterolemia, unspecified; F32.9 Major depressive disorder, single episode, unspecified; I25.2 Old myocardial infarction; E11.319 Type 2 diabetes mellitus with unspecified diabetic retinopathy without macular edema; E66.9 Obesity, unspecified; Z68.42 Body mass index [BMI] 45.0-49.9, adult; Z88.6 Allergy status to analgesic agent; Z88.8 Allergy status to other drugs, medicaments and biological substances; Z88.0 Allergy status to penicillin; Z91.013 Allergy to seafood; Z79.4 Long term (current) use of insulin; Z79.02 Long term (current) use of antithrombotics/antiplatelets; Z95.1 Presence of aortocoronary bypass graft; Z95.0 Presence of cardiac pacemaker; Z79.899 Other long term (current) drug therapy; W00.0XXA Fall on same level due to ice and snow, initial encounter; Y92.89 Other specified places as the place of occurrence of the external cause
CPT/HCPCS: 73562-26-LT; 73562-LT; 99283-25